=== PATIENT | male | born 1965 | race American Indian/Alaskan Native ===

== ENCOUNTER 2017-07-19 04:21 | Emergency (ER) | payer MEDICAID ==
[2017-07-19 05:39] VITALS: BP 124/84
[2017-07-19 06:29] LABS: Basophils % (Auto) 0.7 % (0.0-1.8); Eosinophils % (Auto) 1.3 % (0.0-4.3); Hemoglobin 15.8 gm/dl (11.8-15.2); Mean Corpuscular HGB Conc 33 % (32-34); Mean Corpuscular Hemoglobin 30 pg (28-32); Mean Corpuscular Volume 91 fl (84-94); Platelet Count 349 K/mm3 (140-440); Red Blood Count 5.29 M/mm3 (3.65-5.03); Red Cell Distribution Width 13.3 % (13.2-15.2); White Blood Count 9.6 K/mm3 (4.5-11.0)
[2017-07-19 06:52] LABS: Alanine Aminotransferase 11 units/L (7-56); Albumin/Globulin Ratio 1.3 %; Alkaline Phosphatase 168 units/L (35-129); Anion Gap 16 mmol/L; BUN/Creatinine Ratio 14; Blood Urea Nitrogen 10 mg/dL (9-20); Calcium 9.3 mg/dL (8.4-10.2); Carbon Dioxide 25 mmol/L (22-30); Chloride 100.2 mmol/L (98-107); Glucose 250 mg/dL (75-100); Lipase 30 units/L (13-60); Potassium 4.5 mmol/L (3.6-5.0); Sodium 137 mmol/L (137-145); Total Protein 7.1 g/dL (6.3-8.2)
[2017-07-19 07:48] LABS: Bilirubin,Urine NEG (Negative); Blood,Urine NEG (Negative); Ketones,Urine NEG (Negative); Leukocyte Esterase,Urine NEG (Negative); Mucus,Urine FEW /HPF; Nitrite,Urine NEG (Negative); Protein,Urine <15 mg/dL mg/dL (Negative); RBC,Urine < 1.0 /HPF (0.0-6.0); Urobilinogen,Urine < 2.0 mg/dL (<2.0)
== END 2017-07-19 10:07 | disposition left against medical advice (07) ==
LOC: ED 04:21
DX: Z53.21 Procedure and treatment not carried out due to patient leaving prior to being seen by health care provider (principal)
CPT/HCPCS: 36415; 80053; 81001; 83690; 85025

== ENCOUNTER 2018-12-22 00:06 | Emergency (ER) | payer MEDICAID ==
[2018-12-22] MEDS ORDERED: ASPIRIN PO ONE (07:26)
--- NOTE | 2018-12-22 07:27 | Emergency Department Report ---
ED Lower Extremity HPI - General Chief Complaint: Extremity Injury, Lower Stated Complaint: RIGHT LEG PAIN Time Seen by Provider: 12/22/18 07:22 Source: patient, EMS Mode of arrival: Wheelchair Limitations: No Limitations - History of Present Illness Initial Comments: Patient is a 53-year-old male who has been in the emergency room for over 7 hours at the time of initial exam. He is complaining of right thigh pain. Patient is diabetic. Injury: Thigh: Right Type of Injury: other (no trauma) - Related Data Previous Rx's Medication Instructions Recorded Last Taken Type Albuterol Sulfate [Ventolin HFA] 2 puff IH Q4H PRN #1 hfa.aer.ad 11/16/15 Unknow n Rx Metformin HCl [Glucophage] 1,000 mg PO BID #60 tablet 11/16/15 09/17/18 Rx Allergies Allergy/AdvReac Type Severity Reaction Status Date / Time No Known Allergies Allergy Verified 09/21/18 07:30 ED Review of Systems ROS: Stated complaint: RIGHT LEG PAIN Other details as noted in HPI Comment: All other systems reviewed and negative Constitutional: denies: no symptoms reported Eyes: denies: eye pain ENT: denies: ear pain Respiratory: denies: no symptoms reported Cardiovascular: denies: palpitations, dyspnea on exertion Endocrine: denies: excessive sweating Gastrointestinal: denies: abdominal pain Genitourinary: denies: urgency Musculoskeletal: as per HPI Skin: denies: as per HPI, lesions Neurological: denies: weakness Psychiatric: denies: anxiety Hematological/Lymphatic: denies: as per HPI ED Past Medical Hx - Past Medical History Previous Medical History?: Yes Hx Hypertension: Yes Hx Diabetes: Yes Hx GERD: Yes Hx Psychiatric Treatment: Yes (schizo) Hx Asthma: Yes Additional medical history: sleep apnea. diverticulitis. CAD, Pain therapy - Surgical History Past Surgical History?: Yes Hx Coronary Stent: Yes Additional Surgical History: left hand surgery - Social History Smoking Status: Current Every Day Smoker Substance Use Type: Marijuana - Medications Home Medications: Home Medications Medication Instructions Recorded Confirmed Last Taken Type Albuterol Sulfate [Ventolin HFA] 2 puff IH Q4H PRN #1 hfa.aer.ad 11/16/15 09/18/18 Unknown Rx Metformin HCl [Glucophage] 1,000 mg PO BID #60 tablet 11/16/15 09/21/1809/17/18 Rx ED Physical Exam - General Limitations: No Limitations General appearance: alert - Head Head exam: Present: atraumatic - Eye Eye exam: Present: normal appearance, PERRL - ENT ENT exam: Present: normal exam - Neck Neck exam: Present: normal inspection - Respiratory Respiratory exam: Present: normal lung sounds bilaterally - Cardiovascular Cardiovascular Exam: Present: regular rate - GI/Abdominal GI/Abdominal exam: Present: soft - Rectal Rectal exam: Present: deferred - Extremities Exam Extremities exam: Present: normal inspection, full ROM - Back Exam Back exam: Present: normal inspection, full ROM - Neurological Exam Neurological exam: Present: alert, oriented X3, CN II-XII intact - Psychiatric Psychiatric exam: Present: normal affect, normal mood - Skin Skin exam: Present: warm, dry, intact ED Course Vital Signs 12/22/18 12/22/18 12/22/18 00:16 00:18 09:31 Temperature 98.1 F 98.1 F 98.4 F Pulse Rate 96 H 94 H 76 Respiratory 18 18 13 Rate Blood Pressure 124/79 Blood Pressure 124/79 135/77 [Left] O2 Sat by Pulse 98 98 98 Oximetry ED Lower Extremity MDM - Radiology Data Radiology results: report reviewed, image reviewed - Medical Decision Making us neg for dvt Labs 12/22/18 00:14 POC Glucose 191 H Vital Signs 12/22/18 12/22/18 12/22/18 00:16 00:18 09:31 Temperature 98.1 F 98.1 F 98.4 F Pulse Rate 96 H 94 H 76 Respiratory 18 18 13 Rate Blood Pressure 124/79 Blood Pressure 124/79 135/77 [Left] O2 Sat by Pulse 98 98 98 Oximetry Critical care attestation.: If time is entered above; I have spent that time in minutes in the direct care of this critically ill patient, excluding procedure time. ED Disposition Clinical Impression: Leg pain Disposition: DC-01 TO HOME OR SELFCARE Is pt being admited?: No Does the pt Need Aspirin: No Condition: Stable Additional Instructions: ULTRASOUND NEG FOR BLOOD CLOT FOLLOW UP WITH YOUR PCP THIS WEEK MOTRIN OR TYLENOL FOR PAIN DIET DIABETIC ACTIVITY TOLERATED Referrals: CÉSAR SHANNON MD [Primary Care Provider] - 3-5 Days Time of Disposition: 09:22
--- NOTE | 2018-12-22 08:56 | Vascular Lab Report ---
PROCEDURE: VL VENOUS DUPLEX LE RT TECHNIQUE: Grayscale, color and spectral Doppler ultrasound evaluation of the right lower extremity for DVT HISTORY: LEG PAIN IN DIABETIC COMPARISONS: None FINDINGS: The deep veins in the right lower extremity demonstrate normal compression, color Doppler appearance and spectral Doppler waveforms. Normal respiratory variation and response to augmentation (where perf ormed.) IMPRESSION: No sonographic evidence of DVT in the imaged portions of the right lower extremity. This document is electronically signed by Iam Cowan MD., December 22 2018 08:53:27 AM ET
[2018-12-22 09:33] VITALS: BP 135/77
== END 2018-12-22 09:31 | disposition home or self-care (01) ==
LOC: ED 00:06
DX: M79.651 Pain in right thigh (principal); I10 Essential (primary) hypertension; E11.9 Type 2 diabetes mellitus without complications; K21.9 Gastro-esophageal reflux disease without esophagitis; F31.9 Bipolar disorder, unspecified; J45.909 Unspecified asthma, uncomplicated; F17.200 Nicotine dependence, unspecified, uncomplicated; F12.10 Cannabis abuse, uncomplicated
CPT/HCPCS: 82962

== ENCOUNTER 2019-04-19 04:00 | Emergency (ER) | payer MEDICAID ==
[2019-04-19] MEDS ORDERED: ASPIRIN PO ONE (04:07)
[2019-04-19 04:55] LABS: Basophils # (Auto) 0.1 K/mm3 (0.0-0.1); Basophils % (Auto) 0.8 % (0.0-1.8); Eosinophils # (Auto) 0.1 K/mm3 (0.0-0.4); Eosinophils % (Auto) 1.1 % (0.0-4.3); Hematocrit 50.2 % (35.5-45.6); Hemoglobin 16.6 gm/dl (11.8-15.2); Lymphocytes # (Auto) 2.6 K/mm3 (1.2-5.4); Lymphocytes % (Auto) 31.5 % (13.4-35.0); Mean Corpuscular HGB Conc 33 % (32-34); Mean Corpuscular Volume 94 fl (84-94); Monocytes # (Auto) 0.6 K/mm3 (0.0-0.8); Monocytes % (Auto) 6.9 % (0.0-7.3); Platelet Count 239 K/mm3 (140-440); Red Blood Count 5.37 M/mm3 (3.65-5.03); Red Cell Distribution Width 14.6 % (13.2-15.2)
[2019-04-19 05:10] LABS: BUN/Creatinine Ratio 18; Blood Urea Nitrogen 18 mg/dL (9-20); Hemolysis Index 51
--- NOTE | 2019-04-19 05:21 | XRay Report ---
CHEST 1 VIEW INDICATION / CLINICAL INFORMATION: Chest Pain. COMPARISON: None available. FINDINGS: SUPPORT DEVICES: None. HEART / MEDIASTINUM: No significant abnormality. LUNGS / PLEURA: No significant pulmonary or pleural abnormality. No pneumothorax. ADDITIONAL FINDINGS: No significant additional findings. IMPRESSION: 1. No acute findings. Signer Name: Jaylon Hubbard MD Signed: 04/19/2019 5:17 AM Workstation Name: [id number]
--- NOTE | 2019-04-19 06:16 | Emergency Department Report ---
ED General Adult HPI - General Chief complaint: Dyspnea/Respdistress Stated complaint: COPD Time Seen by Provider: 04/19/19 06:13 Source: patient, EMS Mode of arrival: Wheelchair Limitations: No Limitations - History of Present Illness Initial comments: 3-year-old male with a history of COPD. He states he's been coughing and short of breath for a few days. He states he is out of his medication to include metformin but he did take his insulin. He states his doctor is out of town. He reports occasionally productive sputum. He said no fever or chills. He denies chest pain. -: Gradual, days(s) Associated Symptoms: denies other symptoms, cough, shortness of breath. denies: confusion, chest pain, diaphoresis, fever/chills, headaches, loss of appetite, malaise, nausea/vomiting, rash, seizure, syncope, weakness - Related Data Previous Rx's Medication Instructions Recorded Last Taken Type Albuterol Sulfate [Ventolin HFA] 2 puff IH Q4H PRN #1 hfa.aer.ad 11/16/15 Unknown Rx Metformin HCl [Glucophage] 1,000 mg PO BID #60 tablet 11/16/15 09/17/18 Rx Albuterol Sulfate [Albuterol 0.63% 0.63 mg IH TID PRN #90 vial 04/19/19 Unknown Rx NEBS] Albuterol Sulfate [Proventil Hfa] 6.7 gm IH Q4H PRN #1 hfa.aer.ad 04/19/19 Unknown Rx Azithromycin [Zithromax Z-ROSETTA] 250 mg PO DAILY #6 tablet 04/19/19 Unknown Rx Allergies Allergy/AdvReac Type Severity Reaction Status Date / Time No Known Allergies Allergy Verified 09/21/18 07:30 ED Review of Systems ROS: Stated complaint: COPD Other details as noted in HPI Constitutional: denies: chills, fever Eyes: denies: eye pain, eye discharge, vision change ENT: denies: ear pain, throat pain Respiratory: no symptoms reported, cough, shortness of breath, wheezing Cardiovascular: denies: chest pain, palpitations Endocrine: no symptoms reported Gastrointestinal: denies: abdominal pain, nausea, diarrhea Genitourinary: denies: urgency, dysuria Musculoskeletal: denies: back pain, joint swelling, arthralgia Skin: denies: rash, lesions Neurological: denies: headache, weakness, paresthesias Psychiatric: denies: anxiety, depression Hematological/Lymphatic: denies: easy bleeding, easy bruising ED Past Medical Hx - Past Medical History Previous Medical History?: Yes Hx Hypertension: Yes Hx Diabetes: Yes Hx GERD: Yes Hx Psychiatric Treatment: Yes (schizo) Hx Asthma: Yes Additional medical history: sleep apnea. diverticulitis. CAD, Pain therapy - Surgical History Past Surgical History?: Yes Hx Coronary Stent: Yes Additional Surgical History: left hand surgery - Social History Smoking Status: Current Some Day Smoker Substance Use Type: None - Medications Home Medications: Home Medications Medication Instructions Recorded Confirmed Last Taken Type Albuterol Sulfate [Ventolin HFA] 2 puff IH Q4H PRN #1 hfa.aer.ad 11/16/15 09/18/18 Unknown Rx Metformin HCl [Glucophage] 1,000 mg PO BID #60 tablet 11/16/15 09/21/18 09/17/18 Rx Albuterol Sulfate [Albuterol 0.63% 0.63 mg IH TID PRN #90 vial 04/19/19 Unknown Rx NEBS] Albuterol Sulfate [Proventil Hfa] 6.7 gm IH Q4H PRN #1 hfa.aer.ad 04/19/19 Unknown Rx Azithromycin [Zithromax Z-ROSETTA] 250 mg PO DAILY #6 tablet 04/19/19 Unknown Rx ED Physical Exam - General Limitations: No Limitations General appearance: alert, in no apparent distress - Head Head exam: Present: atraumatic, normocephalic - Eye Eye exam: Present: normal appearance. Absent: scleral icterus - ENT ENT exam: Present: mucous membranes moist - Neck Neck exam: Present: normal inspection - Respiratory Respiratory exam: Present: decreased breath sounds (somewhat), prolonged expiratory (mildly). Absent: respiratory distress - Cardiovascular Cardiovascular Exam: Present: regular rate, normal rhythm. Absent: systolic murmur, diastolic murmur, rubs, gallop - GI/Abdominal GI/Abdominal exam: Present: soft, normal bowel sounds. Absent: distended, tenderness, guarding, rebound, rigid - Rectal Rectal exam: Present: deferred - Extremities Exam Extremities exam: Present: normal inspection - Back Exam Back exam: Present: normal inspection - Neurological Exam Neurological exam: Present: alert, oriented X3, CN II-XII intact. Absent: motor sensory deficit - Psychiatric Psychiatric exam: Present: normal affect, normal mood - Skin Skin exam: Present: warm, dry, intact, normal color. Absent: rash ED Course Vital Signs 04/19/19 04/19/19 06:18 06:33 Temperature 98.1 F Pulse Rate 88 Pulse Rate [ 75 Bilateral] Respiratory 18 Rate Respiratory 18 Rate [Bilateral ] Blood Pressure 105/76 [Right] O2 Sat by Pulse 100 Oximetry - Reevaluation(s) Reevaluation #1: Patient received a neb with improvement. He is appropriate for outpatient management. 04/19/19 08:13 Reevaluation #2: Respiratory status improved. Patient appropriate for outpatient management. 04/19/19 08:24 ED Medical Decision Making - Lab Data Result diagrams: 04/19/19 04:15 04/19/19 04:19 Laboratory Results - last 24 hr 04/19/19 04/19/19 04/19/19 04:15 04:16 04:19 WBC 8.2 RBC 5.37 H Hgb 16.6 H Hct 50.2 H MCV 94 MCH 31 MCHC 33 RDW 14.6 Plt Count 239 Lymph % (Auto) 31.5 Scurry % (Auto) 6.9 Eos % (Auto) 1.1 Baso % (Auto) 0.8 Lymph # 2.6 Scurry # 0.6 Eos # 0.1 Baso # 0.1 Seg Neutrophils % 59.7 Seg Neutrophils # 4.9 Sodium 137 Potassium 4.6 Chloride 100.6 Carbon Dioxide 24 Anion Gap 17 BUN 18 Creatinine 1.0 Estimated GFR > 60 BUN/Creatinine Ratio 18 Glucose 371 H POC Glucose 308 H Calcium 9.0 Troponin T 0.014 Critical care attestation.: If time is entered above; I have spent that time in minutes in the direct care of this critically ill patient, excluding procedure time. ED Disposition Clinical Impression: COPD exacerbation, Hyperglycemia due to type 1 diabetes mellitus Acute bronchitis Qualifiers: Bronchitis organism: unspecified organism Qualified Code(s): J20.9 - Acute bronchitis, unspecified Disposition: DC-01 TO HOME OR SELFCARE Is pt being admited?: No Does the pt Need Aspirin: No Condition: Stable Instructions: Diabetes Mellitus Type 2 in Adults (ED), Chronic Obstructive Pulmonary Disease (ED), Acute Bronchitis (ED) Additional Instructions: Follow-up with your primary care provider. If they're not available [facility]. Return any acute change or problem. Prescriptions: Albuterol Sulfate [Albuterol 0.63% NEBS] 0.63 mg IH TID PRN #90 vial PRN Reason: Wheezing Albuterol Sulfate [Proventil Hfa] 6.7 gm IH Q4H PRN #1 hfa.aer.ad PRN Reason: Wheezing Azithromycin [Zithromax Z-ROSETTA] 250 mg PO DAILY #6 tablet Referrals: [facility] [Provider Group] - 3-5 Days PRIMARY [facility]ARE, [Primary Care Provider] - 3-5 Days Time of Disposition: 08:42
[2019-04-19] MEDS ORDERED: DUONEB *Not for PRN Use IH ONE (06:21)
[2019-04-19] MEDS ORDERED: HumuLIN R SUB-Q ONE (06:22)
[2019-04-19 08:57] VITALS: BP 106/79
== END 2019-04-19 08:57 | disposition home or self-care (01) ==
LOC: ED 04:00
DX: J44.1 Chronic obstructive pulmonary disease with (acute) exacerbation (principal); E10.65 Type 1 diabetes mellitus with hyperglycemia; J20.9 Acute bronchitis, unspecified; I10 Essential (primary) hypertension; K21.9 Gastro-esophageal reflux disease without esophagitis; F20.9 Schizophrenia, unspecified; G47.30 Sleep apnea, unspecified; F17.200 Nicotine dependence, unspecified, uncomplicated; Z79.4 Long term (current) use of insulin; Z79.84 Long term (current) use of oral hypoglycemic drugs; Z79.899 Other long term (current) drug therapy; Z95.1 Presence of aortocoronary bypass graft; Z98.890 Other specified postprocedural states
CPT/HCPCS: 36415; 71045; 80048; 82962; 84484; 85025; 93005; 93010; 94640; 96372; J1815

== ENCOUNTER 2019-05-01 02:57 | Emergency (ER) | payer MEDICAID ==
[2019-05-01 04:03] LABS: Basophils # (Auto) 0.1 K/mm3 (0.0-0.1); Basophils % (Auto) 0.6 % (0.0-1.8); Eosinophils # (Auto) 0.1 K/mm3 (0.0-0.4); Eosinophils % (Auto) 0.9 % (0.0-4.3); Hematocrit 48.9 % (35.5-45.6); Hemoglobin 16.3 gm/dl (11.8-15.2); Lymphocytes # (Auto) 3.3 K/mm3 (1.2-5.4); Lymphocytes % (Auto) 37.1 % (13.4-35.0); Mean Corpuscular HGB Conc 33 % (32-34); Mean Corpuscular Volume 93 fl (84-94); Monocytes # (Auto) 0.5 K/mm3 (0.0-0.8); Platelet Count 229 K/mm3 (140-440); Red Blood Count 5.29 M/mm3 (3.65-5.03); Red Cell Distribution Width 14.6 % (13.2-15.2)
[2019-05-01 04:29] LABS: BUN/Creatinine Ratio 12; Blood Urea Nitrogen 13 mg/dL (9-20); Calcium 8.9 mg/dL (8.4-10.2); Hemolysis Index 26
[2019-05-01 04:58] LABS: Bacteria,Urine 1+ /HPF (Negative); Bilirubin,Urine NEG (Negative); Blood,Urine NEG (Negative); Color,Urine Yellow (Yellow); Mucus,Urine FEW /HPF; Protein,Urine <15 mg/dL mg/dL (Negative); Urobilinogen,Urine < 2.0 mg/dL (<2.0)
[2019-05-01] MEDS ORDERED: NACL 0.9% 1000 ML 2,000 ML IV ONE (05:16)
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
--- NOTE | 2019-05-01 08:18 | XRay Report ---
CHEST 2 VIEWS INDICATION: cough. COMPARISON: 04/19/2019 FINDINGS: Support devices: None. Heart: Within normal limits. Lungs: No acute air space or interstitial disease. Pleura: Diffuse increased bronchovascular markings. Subpleural thickening is present. No pneumothorax . Additional findings: None. IMPRESSION: 1. Diffuse pulmonary process which has increased as compared to previous exam, pulmonary edema is a c oncern Signer Name: Kaleb Hernandez MD Signed: 05/01/2019 8:14 AM Workstation Name: [id number]
[2019-05-01 10:32] VITALS: BP 112/83
== END 2019-05-01 10:00 | disposition home or self-care (01) ==
LOC: ED 02:57
DX: J44.1 Chronic obstructive pulmonary disease with (acute) exacerbation (principal); E11.65 Type 2 diabetes mellitus with hyperglycemia; I10 Essential (primary) hypertension; K21.0 Gastro-esophageal reflux disease with esophagitis; F20.9 Schizophrenia, unspecified; I25.10 Atherosclerotic heart disease of native coronary artery without angina pectoris; F17.200 Nicotine dependence, unspecified, uncomplicated; Z95.1 Presence of aortocoronary bypass graft; Z98.890 Other specified postprocedural states; Z79.899 Other long term (current) drug therapy
CPT/HCPCS: 36415; 71046; 80048; 81001; 82805; 82962; 85025; 87086; 96360; 99284; J7030

== ENCOUNTER 2019-05-26 06:15 | Emergency (ER) | payer MEDICAID ==
[2019-05-26] MEDS ORDERED: TORADOL IV ONE (07:50)
[2019-05-26] MEDS ORDERED: NACL 0.9% 1000 ML 1,000 ML IV ONE (07:50)
--- NOTE | 2019-05-26 07:52 | Emergency Department Report ---
ED Headache HPI - General Chief Complaint: Headache Stated Complaint: LEG AND HEAD PAIN Time Seen by Provider: 05/26/19 07:24 - History of Present Illness Initial Comments: This is a 53-year-old male with a history of diabetes presents to ED complaining of one episode of dizziness earlier this morning and then headache started s hortly after that. Patient states that he is currently taking his metformin twice a day and is not taking insulin to the fact that he is out of his insulin. Patient has a primary care physician Dr. Kyle Ochoa. Patient states that dizziness is resolved but he still having a throbbing headache pain. Patient denies any trauma or injuries to the head. Allergies/Adverse Reactions: Allergies No Known Allergies Allergy (Verified 09/21/18 07:30) Home Medications: Ambulatory Orders Albuterol Sulfate [Ventolin HFA] 2 puff IH Q4H PRN #1 hfa.aer.ad 11/16/15 Metformin HCl [Glucophage] 1,000 mg PO BID #60 tablet 11/16/15 Azithromycin [Zithromax Z-ROSETTA] 250 mg PO DAILY #6 tablet 04/19/19 Albuterol Sulfate [Albuterol 0.63% NEBS] 0.63 mg IH TID PRN #90 vial 05/01/19 Albuterol Sulfate [Proventil Hfa] 6.7 gm IH Q4H PRN #1 hfa.aer.ad 05/01/19 Benzonatate [Tessalon Perles] 100 mg PO Q8HR #30 capsule 05/01/19 Ibuprofen [Motrin] 600 mg PO Q8H PRN #25 tablet 05/26/19 ED Review of Systems ROS: Stated complaint: LEG AND HEAD PAIN Other details as noted in HPI Comment: All other systems reviewed and negative ED Past Medical Hx - Past Medical History Previous Medical History?: Yes Hx Hypertension: Yes Hx Diabetes: Yes Hx GERD: Yes Hx Psychiatric Treatment: Yes (schizophrenia) Hx Asthma: Yes Additional medical history: sleep apnea. diverticulitis. CAD, Pain therapy - Surgical History Past Surgical History?: Yes Hx Coronary Stent: Yes Additional Surgical History: left hand surgery - Social History Smoking Status: Current Every Day Smoker - Medications Home Medications: Home Medications Medication Instructions Recorded Confirmed Last Taken Type Albuterol Sulfate [Ventolin HFA] 2 puff IH Q4H PRN #1 hfa.aer.ad 11/16/15 09/18/18 Unknown Rx Metformin HCl [Glucophage] 1,000 mg PO BID #60 tablet 11/16/15 09/21/18 09/17/18 Rx Azithromycin [Zithromax Z-ROSETTA] 250 mg PO DAILY #6 tablet 04/19/19 Unknown Rx Albuterol Sulfate [Albuterol 0.63% 0.63 mg IH TID PRN #90 vial 05/01/19 Unknown Rx NEBS] Albuterol Sulfate [Proventil Hfa] 6.7 gm IH Q4H PRN #1 hfa.aer.ad 05/01/19 Unknown Rx Benzonatate [Tessalon Perles] 100 mg PO Q8HR #30 capsule 05/01/19 Unknown Rx Ibuprofen [Motrin] 600 mg PO Q8H PRN #25 tablet 05/26/19 Unknown Rx ED Physical Exam - General Limitations: No Limitations General appearance: alert, in no apparent distress - Head Head exam: Present: atraumatic, normocephalic - Eye Eye exam: Present: normal appearance - ENT ENT exam: Present: mucous membranes moist - Neck Neck exam: Present: normal inspection - Respiratory Respiratory exam: Present: normal lung sounds bilaterally. Absent: respiratory distress - Cardiovascular Cardiovascular Exam: Present: regular rate, normal rhythm. Absent: systolic murmur, diastolic murmur, rubs, gallop - GI/Abdominal GI/Abdominal exam: Present: soft, normal bowel sounds - Rectal Rectal exam: Present: deferred - Extremities Exam Extremities exam: Present: normal inspection - Back Exam Back exam: Present: normal inspection - Neurological Exam Neurological exam: Present: alert, oriented X3 - Psychiatric Psychiatric exam: Present: normal affect, normal mood - Skin Skin exam: Present: warm, dry, intact, normal color. Absent: rash ED Course Vital Signs 05/26/19 06:18 Temperature 97.9 F Pulse Rate 87 Respiratory 16 Rate Blood Pressure 119/86 [Right] O2 Sat by Pulse 100 Oximetry - Reevaluation(s) Reevaluation #1: 05/26/19 09:51 Patient is sitting up in he is chair he looks better he is doing much better he states that he is feeling much better and his headache and dizziness has resolved. Patient vital signs stable. He is in no acute distress ED Medical Decision Making - Lab Data Result diagrams: 05/26/19 08:01 05/26/19 08:01 Laboratory Last Values WBC 7.0 K/mm3 (4.5-11.0) 05/26/19 08:01 RBC 5.07 M/mm3 (3.65-5.03) H 05/26/19 08:01 Hgb 15.9 gm/dl (11.8-15.2) H 05/26/19 08:01 Hct 46.8 % (35.5-45.6) H 05/26/19 08:01 MCV 92 fl (84-94) 05/26/19 08:01 MCH 31 pg (28-32) 05/26/19 08:01 MCHC 34 % (32-34) 05/26/19 08:01 RDW 14.9 % (13.2-15.2) 05/26/19 08:01 Plt Count 186 K/mm3 (140-440) 05/26/19 08:01 Lymph % (Auto) 34.5 % (13.4-35.0) 05/26/19 08:01 [place] % (Auto) 8.0 % (0.0-7.3) H 05/26/19 08:01 Eos % (Auto) 0.9 % (0.0-4.3) 05/26/19 08:01 Baso % (Auto) 0.9 % (0.0-1.8) 05/26/19 08:01 Lymph # 2.4 K/mm3 (1.2-5.4) 05/26/19 08:01 [place] # 0.6 K/mm3 (0.0-0.8) 05/26/19 08:01 Eos # 0.1 K/mm3 (0.0-0.4) 05/26/19 08:01 Baso # 0.1 K/mm3 (0.0-0.1) 05/26/19 08:01 Seg Neutrophils % 55.7 % (40.0-70.0) 05/26/19 08:01 Seg Neutrophils # 3.9 K/mm3 (1.8-7.7) 05/26/19 08:01 Sodium 134 mmol/L (137-145) L 05/26/19 08:01 Potassium 4.1 mmol/L (3.6-5.0) 05/26/19 08:01 Chloride 101.0 mmol/L (98-107) 05/26/19 08:01 Carbon Dioxide 23 mmol/L (22-30) 05/26/19 08:01 14 mmol/L 05/26/19 08:01 BUN 14 mg/dL (9-20) 05/26/19 08:01 0.8 mg/dL (0.8-1.5) 05/26/19 08:01 Estimated GFR > 60 ml/min 05/26/19 08:01 18 % 05/26/19 08:01 Glucose 308 mg/dL (75-100) H 05/26/19 08:01 Calcium 8.5 mg/dL (8.4-10.2) 05/26/19 08:01 1.50 mg/dL (0.1-1.2) H 05/26/19 08:01 AST 24 units/L (5-40) 05/26/19 08:01 ALT 29 units/L (7-56) 05/26/19 08:01 85 units/L (35-129) 05/26/19 08:01 5.1 g/dL (6.3-8.2) L 05/26/19 08:01 2.9 g/dL (3.9-5) L 05/26/19 08:01 1.3 % 05/26/19 08:01 Yellow (Yellow) 05/26/19 08:25 Slightly-cloudy (Clear) 05/26/19 08:25 5.0 (5.0-7.0) 05/26/19 08:25 Ur Specific [place] 1.025 (1.003-1.030) 05/26/19 08:25 <15 mg/dl mg/dL (Negative) 05/26/19 08:25 >=500 mg/dL (Negative) 05/26/19 08:25 Tr mg/dL (Negative) 05/26/19 08:25 Neg (Negative) 05/26/19 08:25 Neg (Negative) 05/26/19 08:25 Neg (Negative) 05/26/19 08:25 2.0 mg/dL (<2.0) 05/26/19 08:25 Ur Leukocyte Esterase Tr (Negative) 05/26/19 08:25 17.0 /HPF (0.0-6.0) H 05/26/19 08:25 6.0 /HPF (0.0-6.0) 05/26/19 08:25 U Epithel Cells (Auto) 8.0 /HPF (0-13.0) 05/26/19 08:25 1+ /HPF (Negative) 05/26/19 08:25 Calcium Oxalate Crystal 2+ 05/26/19 08:25 Few /HPF 05/26/19 08:25 - EKG Data EKG shows normal: sinus rhythm - EKG Data When compared to previous EKG there are: no significant change - Medical Decision Making 53-year-old male presenting to the onset of acute headache. This is most likely due to mildly elevated blood glucose. CBC, CMP and urinalysis obtained. This CBC within normal limits, mildly elevated glucose at 305 and urinalysis positive for leukocyte esterase approximately this may be indicated a kidney stone. Patient does state that he had a history of kidney stone Patient received 50 mg of Toradol and IV fluids in the ED. patient associated with Rocephin in the ED Discussed the patient about keeping his diabetes under control. Patient states he'll be following up with primary care physician who is currently helping him to get his insulin. Discussed the patient to follow up with his primary care physician to get this prescription form and insulin. Discussed continue taking metformin patient looks much better he's walking and talking and laughing and is ready for discharge. Critical care attestation.: If time is entered above; I have spent that time in minutes in the direct care of this critically ill patient, excluding procedure time. ED Disposition Clinical Impression: Acute headache, UTI (urinary tract infection) Disposition: - TO HOME OR SELFCARE Is pt being admited?: No Does the pt Need Aspirin: No Condition: Stable Instructions: Urinary Tract Infection in Men (ED), Acute Headache (ED) Additional Instructions: Make sure to follow up with the primary care physician as discussed. Nature UR to continue her diabetes medication both insulin and metformin. If you have any worsening symptoms or develop new symptoms please return to ED immediately. Prescriptions: Ibuprofen [Motrin] 600 mg PO Q8H PRN #25 tablet PRN Reason: Pain Referrals: LAURA WEBSTER MD [Primary Care Provider] - 3-5 Days Forms: Work/School Release Form(ED) Time of Disposition: 09:58
[2019-05-26 08:13] LABS: Basophils # (Auto) 0.1 K/mm3 (0.0-0.1); Basophils % (Auto) 0.9 % (0.0-1.8); Eosinophils # (Auto) 0.1 K/mm3 (0.0-0.4); Eosinophils % (Auto) 0.9 % (0.0-4.3); Hematocrit 46.8 % (35.5-45.6); Hemoglobin 15.9 gm/dl (11.8-15.2); Lymphocytes # (Auto) 2.4 K/mm3 (1.2-5.4); Lymphocytes % (Auto) 34.5 % (13.4-35.0); Mean Corpuscular HGB Conc 34 % (32-34); Mean Corpuscular Volume 92 fl (84-94); Monocytes # (Auto) 0.6 K/mm3 (0.0-0.8); Platelet Count 186 K/mm3 (140-440); Red Blood Count 5.07 M/mm3 (3.65-5.03); Red Cell Distribution Width 14.9 % (13.2-15.2)
[2019-05-26 08:37] LABS: Alanine Aminotransferase 29 units/L (7-56); Albumin 2.9 g/dL (3.9-5); BUN/Creatinine Ratio 18; Blood Urea Nitrogen 14 mg/dL (9-20); Calcium 8.5 mg/dL (8.4-10.2); Hemolysis Index 8
[2019-05-26 08:46] LABS: Bacteria,Urine 1+ /HPF (Negative); Bilirubin,Urine NEG (Negative); Blood,Urine NEG (Negative); Calcium Oxalate Crystals,Urine 2+; Color,Urine Yellow (Yellow); Mucus,Urine FEW /HPF; Protein,Urine <15 mg/dL mg/dL (Negative)
[2019-05-26] MEDS ORDERED: XYLOCAINE 1% MPF 5 mL INFILTRATI ONE (09:56)
[2019-05-26] MEDS ORDERED: ROCEPHIN IM ONE (09:56)
[2019-05-26 10:25] VITALS: BP 104/77
== END 2019-05-26 10:21 | disposition home or self-care (01) ==
LOC: ED 06:15
DX: N39.0 Urinary tract infection, site not specified (principal); R51 Headache; E11.9 Type 2 diabetes mellitus without complications; I10 Essential (primary) hypertension; K21.9 Gastro-esophageal reflux disease without esophagitis; F20.9 Schizophrenia, unspecified; J45.909 Unspecified asthma, uncomplicated; G47.30 Sleep apnea, unspecified; F17.200 Nicotine dependence, unspecified, uncomplicated; Z95.1 Presence of aortocoronary bypass graft; Z79.84 Long term (current) use of oral hypoglycemic drugs; Z79.899 Other long term (current) drug therapy; Z79.1 Long term (current) use of non-steroidal anti-inflammatories (NSAID)
CPT/HCPCS: 36415; 80053; 81001; 85025; 87086; 93005; 93010; 96361; 96372; 96374; 99284; J0696; J1885; J7030

== ENCOUNTER 2019-05-28 03:20 | Inpatient (IN) | payer MEDICAID ==
[2019-05-28 04:03] LABS: Basophils # (Auto) 0.1 K/mm3 (0.0-0.1); Basophils % (Auto) 0.6 % (0.0-1.8); Eosinophils % (Auto) 0.3 % (0.0-4.3); Hematocrit 48.9 % (35.5-45.6); Hemoglobin 16.7 gm/dl (11.8-15.2); Lymphocytes # (Auto) 2.9 K/mm3 (1.2-5.4); Lymphocytes % (Auto) 29.8 % (13.4-35.0); Mean Corpuscular HGB Conc 34 % (32-34); Mean Corpuscular Volume 92 fl (84-94); Monocytes # (Auto) 0.7 K/mm3 (0.0-0.8); Monocytes % (Auto) 7.5 % (0.0-7.3); Platelet Count 218 K/mm3 (140-440); Red Blood Count 5.32 M/mm3 (3.65-5.03); Red Cell Distribution Width 15.1 % (13.2-15.2)
[2019-05-28 04:23] LABS: Alanine Aminotransferase 32 units/L (7-56); Albumin 3.5 g/dL (3.9-5); BUN/Creatinine Ratio 12; Blood Urea Nitrogen 11 mg/dL (9-20); Hemolysis Index 12
[2019-05-28] MEDS ORDERED: HumuLIN R IV ONE (06:25)
[2019-05-28] MEDS ORDERED: LASIX IV ONE (06:25)
--- NOTE | 2019-05-28 06:25 | Emergency Department Report ---
ED General Adult HPI - General Chief complaint: Extremity Problem,Nontraumatic Stated complaint: PAIN/SWELLING BOTH LEGS Time Seen by Provider: 05/28/19 06:06 Source: patient Mode of arrival: Ambulatory Limitations: No Limitations - History of Present Illness Initial comments: 53-year-old male who is a very poorly controlled diabetic probably noncompliant who I have seen before in the past. He has history of COPD. He states that he has had swollen legs for 2 weeks. He states that he was here before and told that the cause was a urinary tract infection. However, review of his prior visit on 05/26/2019 indicates that he was here for an acute headache. I do not believe he has any history of congestive heart failure. He does have a history of COPD. He states that he is seeing Dr. Reyes and does not yet have a CPAP machine like he did when he was living in [place] some time ago. He is not reporting to me any acute shortness of breath. He does have exertional dyspnea. He also states he "does not sleep at night" due to shortness of breath. -: Gradual, week(s) Improves with: none Worsens with: none Associated Symptoms: denies other symptoms - Related Data Previous Rx's Medication Instructions Recorded Last Taken Type Albuterol Sulfate [Ventolin HFA] 2 puff IH Q4H PRN #1 hfa.aer.ad 11/16/15 Unknown Rx Metformin HCl [Glucophage] 1,000 mg PO BID #60 tablet 11/16/15 09/17/18 Rx Azithromycin [Zithromax Z-ROSETTA] 250 mg PO DAILY #6 tablet 04/19/19 Unknown Rx Albuterol Sulfate [Albuterol 0.63% 0.63 mg IH TID PRN #90 vial 05/01/19 Unknown Rx NEBS] Albuterol Sulfate [Proventil Hfa] 6.7 gm IH Q4H PRN #1 hfa.aer.ad 05/01/19 Unknown Rx Benzonatate [Tessalon Perles] 100 mg PO Q8HR #30 capsule 05/01/19 Unknown Rx Ibuprofen [Motrin] 600 mg PO Q8H PRN #25 tablet 05/26/19 Unknown Rx Allergies Allergy/AdvReac Type Severity Reaction Status Date / Time No Known Allergies Allergy Verified 09/21/18 07:30 ED Review of Systems ROS: Stated complaint: PAIN/SWELLING BOTH LEGS Other details as noted in HPI Constitutional: denies: chills, fever Eyes: denies: eye pain, eye discharge, vision change ENT: denies: ear pain, throat pain Respiratory: denies: cough, shortness of breath, wheezing Cardiovascular: edema. denies: chest pain, palpitations Endocrine: no symptoms reported Gastrointestinal: denies: abdominal pain, nausea, diarrhea Genitourinary: denies: urgency, dysuria Musculoskeletal: as per HPI. denies: back pain, joint swelling, arthralgia Skin: as per HPI (some blisters on his legs). denies: rash, lesions Neurological: denies: headache, weakness, paresthesias Psychiatric: denies: anxiety, depression Hematological/Lymphatic: denies: easy bleeding, easy bruising ED Past Medical Hx - Past Medical History Hx Hypertension: Yes Hx Diabetes: Yes Hx GERD: Yes Hx Psychiatric Treatment: Yes (schizophrenia) Hx Asthma: Yes Additional medical history: sleep apnea. diverticulitis. CAD, Pain therapy - Surgical History Past Surgical History?: Yes Hx Coronary Stent: Yes Additional Surgical History: left hand surgery - Social History Smoking Status: Current Every Day Smoker Substance Use Type: None - Medications Home Medications: Home Medications Medication Instructions Recorded Confirmed Last Taken Type Albuterol Sulfate [Ventolin HFA] 2 puff IH Q4H PRN #1 hfa.aer.ad 11/16/15 09/18/18 Unknown Rx Metformin HCl [Glucophage] 1,000 mg PO BID #60 tablet 11/16/15 09/21/18 09/17/18 Rx Azithromycin [Zithromax Z-ROSETTA] 250 mg PO DAILY #6 tablet 04/19/19 Unknown Rx Albuterol Sulfate [Albuterol 0.63% 0.63 mg IH TID PRN #90 vial 05/01/19 Unknown Rx NEBS] Albuterol Sulfate [Proventil Hfa] 6.7 gm IH Q4H PRN #1 hfa.aer.ad 05/01/19 Unknown Rx Benzonatate [Tessalon Perles] 100 mg PO Q8HR #30 capsule 05/01/19 Unknown Rx Ibuprofen [Motrin] 600 mg PO Q8H PRN #25 tablet 05/26/19 Unknown Rx ED Physical Exam - General Limitations: No Limitations General appearance: alert, in no apparent distress, cachectic - Head Head exam: Present: atraumatic, normocephalic - Eye Eye exam: Present: normal appearance. Absent: scleral icterus - ENT ENT exam: Present: mucous membranes moist - Neck Neck exam: Present: normal inspection - Respiratory Respiratory exam: Present: normal lung sounds bilaterally. Absent: respiratory distress - Cardiovascular Cardiovascular Exam: Present: regular rate, normal rhythm. Absent: systolic murmur, diastolic murmur, rubs, gallop - GI/Abdominal GI/Abdominal exam: Present: soft, normal bowel sounds. Absent: distended, tenderness, guarding, rebound, rigid - Rectal Rectal exam: Present: deferred - Extremities Exam Extremities exam: Present: other (bilateral 2+ pitting pretibial, ankle and pedal no calf tenderness) - Back Exam Back exam: Present: normal inspection - Neurological Exam Neurological exam: Present: alert, oriented X3, CN II-XII intact. Absent: motor sensory deficit - Psychiatric Psychiatric exam: Present: normal mood, flat affect - Skin Skin exam: Present: warm, dry, intact, normal color. Absent: rash ED Course Vital Signs 05/28/19 05/28/19 03:21 05:03 Temperature 98.3 F Pulse Rate 101 H Respiratory 18 18 Rate Blood Pressure 101/80 Blood Pressure 124/85 [Right] O2 Sat by Pulse 99 Oximetry - Reevaluation(s) Reevaluation #1: I'm going to give the patient insulin Lasix and potassium. I think he qualifies for admission for new onset CHF. 05/28/19 07:14 Reevaluation #2: Stress with hospitalist. The patient will be admitted for further care and evaluation. 05/28/19 07:53 ED Medical Decision Making - Lab Data Result diagrams: 05/28/19 03:37 05/28/19 03:37 Laboratory Results - last 24 hr 05/28/19 05/28/19 03:37 03:37 WBC 9.6 RBC 5.32 H Hgb 16.7 H Hct 48.9 H MCV 92 MCH 31 MCHC 34 RDW 15.1 Plt Count 218 Lymph % (Auto) 29.8 [place] % (Auto) 7.5 H Eos % (Auto) 0.3 Baso % (Auto) 0.6 Lymph # 2.9 [place] # 0.7 Eos # 0.0 Baso # 0.1 Seg Neutrophils % 61.8 Seg Neutrophils # 5.9 Sodium 134 L Potassium 3.8 Chloride 98.1 Carbon Dioxide 26 Anion Gap 14 BUN 11 Creatinine 0.9 Estimated GFR > 60 BUN/Creatinine Ratio 12 Glucose 323 H Calcium 9.0 Total Bilirubin 1.60 H AST 24 ALT 32 Alkaline Phosphatase 95 NT-Pro-B Natriuret Pep 3794 H Total Protein 5.9 L Albumin 3.5 L Albumin/Globulin Ratio 1.5 Critical care attestation.: If time is entered above; I have spent that time in minutes in the direct care of this critically ill patient, excluding procedure time. ED Disposition Clinical Impression: New onset of congestive heart failure Uncontrolled diabetes mellitus with hyperglycemia Qualifiers: Diabetes mellitus type: type 2 Qualified Code(s): E11.65 - Type 2 diabetes mellitus with hyperglycemia COPD (chronic obstructive pulmonary disease) Qualifiers: COPD type: unspecified COPD Qualified Code(s): J44.9 - Chronic obstructive pulmonary disease, unspecified Disposition: 09 OP ADMIT IP TO THIS HOSP Is pt being admited?: Yes Does the pt Need Aspirin: Yes Condition: Stable Instructions: Diabetes Mellitus Type 2 in Adults (ED), Chronic Obstructive Pulmonary Disease (ED) Referrals: PRIMARY CAREMD [Primary Care Provider] - 3-5 Days Time of Disposition: 07:54
[2019-05-28] MEDS ORDERED: K-DUR PO ONE (06:26)
--- NOTE | 2019-05-28 06:38 | XRay Report ---
CHEST 1 VIEW 6:13 AM INDICATION / CLINICAL INFORMATION: Edema. COMPARISON: 05/01/2019. FINDINGS: SUPPORT DEVICES: None. HEART / MEDIASTINUM: Mild generalized cardiomegaly is stable. Pulmonary vasculature is normal. LUNGS / PLEURA: No significant pulmonary or pleural abnormality. Mild interstitial edema has resolved . There is no evidence of pneumothorax. ADDITIONAL FINDINGS: No significant additional findings. IMPRESSION: Cardiomegaly without evidence of pulmonary edema. Signer Name: Marshall Leal MD Signed: 05/28/2019 6:33 AM Workstation Name: [id number]
[2019-05-28 06:53] LABS: INR 1.25 (0.87-1.13)
[2019-05-28 06:58] LABS: Creatine Kinase MB 6.4 ng/mL (0.0-4.0)
[2019-05-28] MEDS ORDERED: ASPIRIN PO ONE (07:54)
[2019-05-28 07:59] LABS: Bacteria,Urine 1+ /HPF (Negative); Bilirubin,Urine NEG (Negative); Blood,Urine NEG (Negative); Color,Urine Yellow (Yellow); Mucus,Urine FEW /HPF; Protein,Urine <15 mg/dL mg/dL (Negative); Urobilinogen,Urine < 2.0 mg/dL (<2.0)
[2019-05-28] MEDS ORDERED: ASPIRIN ONE (09:08)
--- NOTE | 2019-05-28 17:32 | History and Physical Report ---
History of Present Illness Date of examination: 05/28/19 Date of admission: 05/28/19 07:54 Medications and Allergies Allergies Allergy/AdvReac Type Severity Reaction Status Date / Time No Known Allergies Allergy Verified 09/21/18 07:30 Home Medications Medication Instructions Recorded Confirmed Last Taken Type Metformin HCl [Glucophage] 1,000 mg PO BID #60 tablet 11/16/15 05/28/19 09/17/18 Rx Albuterol Sulfate [Albuterol 0.63% 0.63 mg IH TID PRN #90 vial 05/01/19 05/28/19 Unknown Rx NEBS] Albuterol Sulfate [Proventil Hfa] 6.7 gm IH Q4H PRN #1 hfa.aer.ad 05/01/19 05/28/19 Unknown Rx Ibuprofen [Motrin] 600 mg PO Q8H PRN #25 tablet 05/26/19 05/28/19 Unknown Rx AtorvaSTATin [Lipitor] 40 mg PO QHS 05/28/19 05/28/19 Unknown History Furosemide [Lasix] 20 mg PO QDAY 05/28/19 05/28/19 Unknown History Gabapentin [Neurontin] 300 mg PO BID 05/28/19 05/28/19 Unknown History Haloperidol [Haldol] 5 mg PO BID 05/28/19 05/28/19 Unknown History Meloxicam [Mobic] 7.5 mg PO BID 05/28/19 05/28/19 Unknown History Potassium Chloride [Klor-Con 8] 8 meq PO QDAY 05/28/19 05/28/19 Unknown History traZODone [Desyrel] 100 mg PO QHS 05/28/19 05/28/19 Unknown History Active Meds: Active Medications Nicotine (Habitrol) 7 mg TD QDAY EMILY Exam - Constitutional Vitals: Temp Pulse Resp BP Pulse Ox 98.0 F 90 20 118/52 99 05/28/19 16:51 05/28/19 17:03 05/28/19 17:00 05/28/19 16:51 05/28/19 17:00 Results - Labs CBC & Chem 7: 05/28/19 03:37 05/28/19 03:37 Labs: Laboratory Last Values WBC 9.6 K/mm3 (4.5-11.0) 05/28/19 03:37 RBC 5.32 M/mm3 (3.65-5.03) H 05/28/19 03:37 Hgb 16.7 gm/dl (11.8-15.2) H 05/28/19 03:37 Hct 48.9 % (35.5-45.6) H 05/28/19 03:37 MCV 92 fl (84-94) 05/28/19 03:37 MCH 31 pg (28-32) 05/28/19 03:37 MCHC 34 % (32-34) 05/28/19 03:37 RDW 15.1 % (13.2-15.2) 05/28/19 03:37 Plt Count 218 K/mm3 (140-440) 05/28/19 03:37 Lymph % (Auto) 29.8 % (13.4-35.0) 05/28/19 03:37 [place] % (Auto) 7.5 % (0.0-7.3) H 05/28/19 03:37 Eos % (Auto) 0.3 % (0.0-4.3) 05/28/19 03:37 Baso % (Auto) 0.6 % (0.0-1.8) 05/28/19 03:37 Lymph # 2.9 K/mm3 (1.2-5.4) 05/28/19 03:37 [place] # 0.7 K/mm3 (0.0-0.8) 05/28/19 03:37 Eos # 0.0 K/mm3 (0.0-0.4) 05/28/19 03:37 Baso # 0.1 K/mm3 (0.0-0.1) 05/28/19 03:37 Seg Neutrophils % 61.8 % (40.0-70.0) 05/28/19 03:37 Seg Neutrophils # 5.9 K/mm3 (1.8-7.7) 05/28/19 03:37 PT 15.4 Sec. (12.2-14.9) H 05/28/19 06:30 INR 1.25 (0.87-1.13) H 05/28/19 06:30 APTT 20.0 Sec. (24.2-36.6) L 05/28/19 06:30 183.31 ng/mlDDU (0-234) 05/28/19 06:30 Sodium 134 mmol/L (137-145) L 05/28/19 03:37 Potassium 3.8 mmol/L (3.6-5.0) 05/28/19 03:37 Chloride 98.1 mmol/L (98-107) 05/28/19 03:37 Carbon Dioxide 26 mmol/L (22-30) 05/28/19 03:37 14 mmol/L 05/28/19 03:37 BUN 11 mg/dL (9-20) 05/28/19 03:37 0.9 mg/dL (0.8-1.5) 05/28/19 03:37 Estimated GFR > 60 ml/min 05/28/19 03:37 12 % 05/28/19 03:37 Glucose 323 mg/dL (75-100) H 05/28/19 03:37 POC Glucose 344 (70-105) H 05/28/19 16:38 Calcium 9.0 mg/dL (8.4-10.2) 05/28/19 03:37 Magnesium 1.80 mg/dL (1.7-2.3) 05/28/19 06:30 1.60 mg/dL (0.1-1.2) H 05/28/19 03:37 AST 24 units/L (5-40) 05/28/19 03:37 ALT 32 units/L (7-56) 05/28/19 03:37 95 units/L (35-129) 05/28/19 03:37 188 units/L (55-170) H 05/28/19 06:30 CK-MB (CK-2) 6.4 ng/mL (0.0-4.0) H 05/28/19 06:30 CK-MB (CK-2) Rel Index 3.4 (0-4) 05/28/19 06:30 0.023 ng/mL (0.00-0.029) 05/28/19 06:30 NT-Pro-B Natriuret Pep 3794 pg/mL (0-900) H 05/28/19 03:37 5.9 g/dL (6.3-8.2) L 05/28/19 03:37 3.5 g/dL (3.9-5) L 05/28/19 03:37 1.5 % 05/28/19 03:37 Yellow (Yellow) 05/28/19 07:25 Clear (Clear) 05/28/19 07:25 5.0 (5.0-7.0) 05/28/19 07:25 Ur Specific [place] 1.010 (1.003-1.030) 05/28/19 07:25 <15 mg/dl mg/dL (Negative) 05/28/19 07:25 >=500 mg/dL (Negative) 05/28/19 07:25 Neg mg/dL (Negative) 05/28/19 07:25 Neg (Negative) 05/28/19 07:25 Neg (Negative) 05/28/19 07:25 Neg (Negative) 05/28/19 07:25 < 2.0 mg/dL (<2.0) 05/28/19 07:25 Ur Leukocyte Esterase Tr (Negative) 05/28/19 07:25 10.0 /HPF (0.0-6.0) H 05/28/19 07:25 1.0 /HPF (0.0-6.0) 05/28/19 07:25 U Epithel Cells (Auto) 1.0 /HPF (0-13.0) 05/28/19 07:25 1+ /HPF (Negative) 05/28/19 07:25 Few /HPF 05/28/19 07:25
[2019-05-28] MEDS ORDERED: IBUPROFEN PO PRN (17:33)
[2019-05-28] MEDS ORDERED: PROAIR IH PRN (17:33)
[2019-05-28] MEDS ORDERED: REGLAN IV PRN (17:34)
[2019-05-28] MEDS ORDERED: ZOFRAN IV PRN (17:34)
[2019-05-28] MEDS ORDERED: DILAUDID IV PRN (17:34)
[2019-05-28] MEDS ORDERED: SODIUM CHLORIDE FLUSH SYRINGE 10 ML IV PRN (17:34)
[2019-05-28] MEDS ORDERED: PERCOCET 5/325 PO PRN (17:34)
[2019-05-28] MEDS ORDERED: TYLENOL PO PRN (17:34)
[2019-05-28] MEDS ORDERED: PROVENTIL IH PRN ×2 (17:38→17:41)
[2019-05-28] MEDS: SOLU-Medrol IV SCH ×2 (18:10→21:36)
[2019-05-28] MEDS: K-DUR PO SCH (18:10)
[2019-05-28] MEDS: LASIX IV SCH (18:11)
[2019-05-28] MEDS: ROCEPHIN/NS 2 GM/100 ML 2 GM/100 ML BAG IV SCH (18:39)
[2019-05-28] MEDS: HABITROL TD SCH (18:39)
[2019-05-28] MEDS: DUONEB *Not for PRN Use IH SCH (20:36)
[2019-05-28] MEDS: MOBIC PO SCH (21:37)
[2019-05-28] MEDS: NEURONTIN PO SCH (21:38)
[2019-05-28] MEDS: HumaLOG SUB-Q SCH (21:39)
[2019-05-28] MEDS: PEPCID PO SCH (21:39)
[2019-05-28] MEDS: HALDOL PO SCH (21:39)
[2019-05-28] MEDS: GLUCOPHAGE PO SCH (21:39)
[2019-05-28] MEDS: SODIUM CHLORIDE FLUSH SYRINGE 10 ML IV SCH (21:40)
[2019-05-28] MEDS ORDERED: DESYREL PO SCH (22:00)
[2019-05-28] MEDS ORDERED: NON-FORMULARY (Metformin Hcl [Glucophage] 1,000 MG) PO SCH (22:00)
[2019-05-29] MEDS: SOLU-Medrol IV SCH ×2 (05:42→16:49)
[2019-05-29] MEDS: K-DUR PO SCH ×2 (05:43→18:43)
[2019-05-29] MEDS: LASIX IV SCH ×2 (05:43→18:43)
[2019-05-29] MEDS: DUONEB *Not for PRN Use IH SCH ×3 (08:03→16:06)
[2019-05-29] MEDS: GLUCOPHAGE PO SCH (09:27)
[2019-05-29] MEDS: ROCEPHIN/NS 2 GM/100 ML 2 GM/100 ML BAG IV SCH (09:27)
[2019-05-29] MEDS: HABITROL TD SCH (09:27)
[2019-05-29] MEDS: HumaLOG SUB-Q SCH ×3 (09:28→17:04)
[2019-05-29] MEDS: PEPCID PO SCH (09:29)
[2019-05-29] MEDS: MOBIC PO SCH (09:29)
[2019-05-29] MEDS: SODIUM CHLORIDE FLUSH SYRINGE 10 ML IV SCH (09:34)
[2019-05-29] MEDS: NEURONTIN PO SCH (09:39)
[2019-05-29] MEDS: HALDOL PO SCH (09:39)
[2019-05-29] MEDS ORDERED: KLOR-CON 8 PO SCH (10:00)
--- NOTE | 2019-05-29 10:58 | Consultation ---
History of Present Illness Consult date: 05/29/19 Consult reason: congestive heart failure, shortness of breath History of present illness: Impression Pt present with progressive shortness of breath and edema CXR cardiomegaly, minimal edema NTproBNP [id number] feels better with IV diuresis H/o CAD stent approx 20 yrs ago, no chest pain at present time COPD DM, poorly controlled Plan IV diureiss over ' Echo pending Nuclear stress on Friday to assess ischemic threshold. No chest pain and trop negative at this time Past History Past Medical History: CAD, diabetes, other (COPD) Social history: no significant social history Medications and Allergies Allergies Allergy/AdvReac Type Severity Reaction Status Date / Time No Known Allergies Allergy Verified 09/21/18 07:30 Home Medications Medication Instructions Recorded Confirmed Last Taken Type Metformin HCl [Glucophage] 1,000 mg PO BID #60 tablet 11/16/15 05/28/19 09/17/18 Rx Albuterol Sulfate [Albuterol 0.63% 0.63 mg IH TID PRN #90 vial 05/01/19 05/28/19 Unknown Rx NEBS] Albuterol Sulfate [Proventil Hfa] 6.7 gm IH Q4H PRN #1 hfa.aer.ad 05/01/19 05/28/19 Unknown Rx Ibuprofen [Motrin] 600 mg PO Q8H PRN #25 tablet 05/26/19 05/28/19 Unknown Rx AtorvaSTATin [Lipitor] 40 mg PO QHS 05/28/19 05/28/19 Unknown History Furosemide [Lasix] 20 mg PO QDAY 05/28/19 05/28/19 Unknown History Gabapentin [Neurontin] 300 mg PO BID 05/28/19 05/28/19 Unknown History Haloperidol [Haldol] 5 mg PO BID 05/28/19 05/28/19 Unknown History Meloxicam [Mobic] 7.5 mg PO BID 05/28/19 05/28/19 Unknown History Potassium Chloride [Klor-Con 8] 8 meq PO QDAY 05/28/19 05/28/19 Unknown History traZODone [Desyrel] 100 mg PO QHS 05/28/19 05/28/19 Unknown History Active Meds: Active Medications Acetaminophen (Tylenol) 650 mg PO Q4H PRN PRN Reason: Pain MILD(1-3)/Fever >100.5/TERESA Albuterol (Proventil) 2.5 mg IH Q4HRT PRN PRN Reason: Shortness Of Breath Albuterol (Proventil) 2.5 mg IH Q4HRT PRN PRN Reason: Shortness Of Breath Albuterol/Ipratropium (Duoneb *Not For Prn Use*) 1 ampul IH QIDRT [facility] Last Admin: 05/29/19 08:03 Dose: 1 ampul Documented by: Atorvastatin Calcium (Lipitor) 40 mg PO QHS [facility] Last Admin: 05/28/19 21:38 Dose: 40 mg Documented by: Famotidine (Pepcid) 20 mg PO BID [facility] Last Admin: 05/29/19 09:29 Dose: 20 mg Documented by: Furosemide (Lasix) 40 mg IV 0600,1800 [facility] Last Admin: 05/29/19 05:43 Dose: 40 mg Documented by: Gabapentin (Neurontin) 300 mg PO BID [facility] Last Admin: 05/29/19 09:39 Dose: Not Given Documented by: Haloperidol (Haldol) 5 mg PO BID [facility] Last Admin: 05/29/19 09:39 Dose: Not Given Documented by: Hydromorphone HCl (Dilaudid) 0.5 mg IV Q3H PRN PRN Reason: Pain , Severe (7-10) Ceftriaxone Sodium (Rocephin/Ns 2 Gm/100 Ml) 2 gm in 100 mls @ 200 mls/hr IV Q24HR [facility]; Protocol Last Admin: 05/29/19 09:27 Dose: 200 mls/hr Documented by: Ibuprofen (Ibuprofen) 600 mg PO Q8H PRN PRN Reason: Pain Insulin Human Lispro (Humalog) 0 unit SUB-Q ACHS [facility]; Protocol Last Admin: 05/29/19 09:28 Dose: 8 unit Documented by: Meloxicam (Mobic) 7.5 mg PO BID [facility] Last Admin: 05/29/19 09:29 Dose: 7.5 mg Documented by: Metformin HCl (Glucophage) 1,000 mg PO BID [facility] Last Admin: 05/29/19 09:27 Dose: 1,000 mg Documented by: Methylprednisolone Sodium Succinate (Solu-Medrol) 60 mg IV Q8HR [facility] Last Admin: 05/29/19 05:42 Dose: 60 mg Documented by: Metoclopramide HCl (Reglan) 10 mg IV Q6H PRN PRN Reason: Nausea And Vomiting Nicotine (Habitrol) 7 mg TD QDAY [facility] Last Admin: 05/29/19 09:27 Dose: 7 mg Documented by: Ondansetron HCl (Zofran) 4 mg IV Q8H PRN PRN Reason: Nausea And Vomiting Oxycodone/Acetaminophen (Percocet 5/325) 1 tab PO Q6H PRN PRN Reason: Pain, Moderate (4-6) Potassium Chloride (Klor-Con 8) 8 meq PO QDAY [facility] Potassium Chloride (K-Dur) 20 meq PO Q12H [facility] Last Admin: 05/29/19 05:43 Dose: 20 meq Documented by: Sodium Chloride (Sodium Chloride Flush Syringe 10 Ml) 10 ml IV BID [facility] Last Admin: 05/29/19 09:34 Dose: 10 ml Documented by: Sodium Chloride (Sodium Chloride Flush Syringe 10 Ml) 10 ml IV PRN PRN PRN Reason: LINE FLUSH Trazodone HCl (Desyrel) 100 mg PO QHS [facility] Last Admin: 05/28/19 21:39 Dose: 100 mg Documented by: Review of Systems All systems: negative (stated in impression) Physical Examination Vital Signs Temp Pulse Resp BP Pulse Ox 98.3 F 101 H 18 124/85 99 05/28/19 03:21 05/28/19 03:21 05/28/19 03:21 05/28/19 03:21 05/28/19 03:21 General appearance: no acute distress HEENT: Positive: PERRL Neck: Positive: neck supple Cardiac: Positive: Reg Rate and Rhythm Lungs: Positive: Normal Exam Neuro: Positive: Grossly Intact Abdomen: Positive: Soft Extremities: Present: +1 Edema Results 05/28/19 03:37 05/28/19 03:37
[2019-05-29 15:09] LABS: Basophils % (Auto) 0.3 % (0.0-1.8); Hematocrit 48.8 % (35.5-45.6); Hemoglobin 16.4 gm/dl (11.8-15.2); Lymphocytes # (Auto) 1.6 K/mm3 (1.2-5.4); Mean Corpuscular HGB Conc 34 % (32-34); Mean Corpuscular Volume 93 fl (84-94); Monocytes # (Auto) 0.7 K/mm3 (0.0-0.8); Monocytes % (Auto) 4.6 % (0.0-7.3); Platelet Count 231 K/mm3 (140-440); Red Blood Count 5.26 M/mm3 (3.65-5.03); Red Cell Distribution Width 15.3 % (13.2-15.2)
[2019-05-29 15:29] LABS: Alanine Aminotransferase 25 units/L (7-56); BUN/Creatinine Ratio 17; Blood Urea Nitrogen 20 mg/dL (9-20); Calcium 9.2 mg/dL (8.4-10.2); Hemolysis Index 23
[2019-05-29 16:41] VITALS: BP 101/64
--- NOTE | 2019-05-29 16:47 | Progress Note ---
Subjective Date of service: 05/29/19 Objective - Constitutional Vitals: Vital Signs - 12hr 05/29/19 05/29/19 05/29/19 07:38 08:00 08:03 Temperature 97.7 F Pulse Rate 69 Pulse Rate [ 79 Bilateral Throughout] Pulse Rate [ 80 Radial] Respiratory 16 18 Rate Respiratory 20 Rate [Bilateral Throughout] Blood Pressure 94/66 O2 Sat by Pulse 96 97 Oximetry 05/29/19 05/29/19 13:20 14:39 Temperature 97.8 F Pulse Rate 80 Pulse Rate [ 82 Bilateral Throughout] Pulse Rate [ Radial] Respiratory 16 Rate Respiratory 20 Rate [Bilateral Throughout] Blood Pressure 101/64 O2 Sat by Pulse 99 Oximetry - Labs CBC & Chem 7: 05/29/19 15:00 05/29/19 14:56 Labs: Abnormal lab results 05/28/19 05/28/19 05/29/19 Range/Units 03:37 21:02 07:12 WBC (4.5-11.0) K/mm3 RBC (3.65-5.03) M/mm3 Hgb (11.8-15.2) gm/dl Hct (35.5-45.6) % RDW (13.2-15.2) % Lymph % (Auto) (13.4-35.0) % Seg Neutrophils % (40.0-70.0) % Seg Neutrophils # (1.8-7.7) K/mm3 Sodium (137-145) mmol/L Chloride (98-107) mmol/L Glucose (75-100) mg/dL POC Glucose 344 H 367 H (70-105) Hemoglobin A1c > 20.1 H (4-6) % Total Protein (6.3-8.2) g/dL Albumin (3.9-5) g/dL 05/29/19 05/29/19 05/29/19 Range/Units 11:46 14:56 15:00 WBC 15.8 H (4.5-11.0) K/mm3 RBC 5.26 H (3.65-5.03) M/mm3 Hgb 16.4 H (11.8-15.2) gm/dl Hct 48.8 H (35.5-45.6) % RDW 15.3 H (13.2-15.2) % Lymph % (Auto) 10.0 L (13.4-35.0) % Seg Neutrophils % 85.1 H (40.0-70.0) % Seg Neutrophils # 13.4 H (1.8-7.7) K/mm3 Sodium 136 L (137-145) mmol/L Chloride 96.6 L (98-107) mmol/L Glucose 360 H (75-100) mg/dL POC Glucose 371 H (70-105) Hemoglobin A1c (4-6) % Total Protein 5.3 L (6.3-8.2) g/dL Albumin 3.0 L (3.9-5) g/dL 05/29/19 Range/Units 16:46 WBC (4.5-11.0) K/mm3 RBC (3.65-5.03) M/mm3 Hgb (11.8-15.2) gm/dl Hct (35.5-45.6) % RDW (13.2-15.2) % Lymph % (Auto) (13.4-35.0) % Seg Neutrophils % (40.0-70.0) % Seg Neutrophils # (1.8-7.7) K/mm3 Sodium (137-145) mmol/L Chloride (98-107) mmol/L Glucose (75-100) mg/dL POC Glucose 336 H (70-105) Hemoglobin A1c (4-6) % Total Protein (6.3-8.2) g/dL Albumin (3.9-5) g/dL
[2019-05-29] MEDS ORDERED: DUONEB *Not for PRN Use IH SCH (20:00)
== END 2019-05-29 08:30 | disposition left against medical advice (07) | DRG 293 ==
LOC: ED 03:20 → 4A 07:54
PROVIDERS: ADMIT Internal Medicine; ATTEND Internal Medicine
DX: I50.9 Heart failure, unspecified (principal); E11.65 Type 2 diabetes mellitus with hyperglycemia; J44.9 Chronic obstructive pulmonary disease, unspecified; K21.9 Gastro-esophageal reflux disease without esophagitis; F20.9 Schizophrenia, unspecified; I25.10 Atherosclerotic heart disease of native coronary artery without angina pectoris; F17.200 Nicotine dependence, unspecified, uncomplicated; Z53.21 Procedure and treatment not carried out due to patient leaving prior to being seen by health care provider; G47.30 Sleep apnea, unspecified; Z91.14 Patient's other noncompliance with medication regimen; Z79.51 Long term (current) use of inhaled steroids; Z79.899 Other long term (current) drug therapy; Z79.84 Long term (current) use of oral hypoglycemic drugs; Z95.5 Presence of coronary angioplasty implant and graft
CPT/HCPCS: 36415; 71045; 80053; 81001; 82550; 82553; 82962; 83036; 83735; 83880; 84484; 85025; 85379; 85610; 85730; 87086; 94640; 96374; 96375; G0378; A9270-GY; J0696; J1815; J1940; J2930

== ENCOUNTER 2019-06-14 12:43 | Emergency (ER) | payer MEDICAID ==
--- NOTE | 2019-06-14 12:45 | Emergency Department Report ---
Blank Doc - Documentation Documentation: This is a 53-year-old male that presents with CP and SOB. This initial assessment/diagnostic orders/clinical plan/treatment(s) is/are subject to change based on patient's health status, clinical progression and re- assessment by fellow clinical providers in the ED. Further treatment and workup at subsequent clinical providers discretion. Patient/guardians urged not to elope from the ED as their condition may be serious if not clinically assessed and managed. Initial orders include: 1- Patient sent to [facility] for further evaluation and treatment 2- labs 3- EKG 4- CXR
[2019-06-14 12:48] VITALS: BP 117/73
--- NOTE | 2019-06-14 13:41 | XRay Report ---
CHEST 2 VIEWS INDICATION: Chest Pain. COMPARISON: 05/28/2019 FINDINGS: Support devices: None. Heart: Borderline to mild cardiomegaly appears stable. Lungs/pleura: Bronchovascular markings in the lower lung zones are slightly prominent. This appears t o represent congestive changes. No evidence for consolidation or large pleural effusion. No pneumoth orax. Additional findings: None. IMPRESSION: Borderline to mild cardiomegaly. Mild vascular congestion. Signer Name: Zay Rdz Jr, MD Signed: 06/14/2019 1:37 PM Workstation Name: [id number]
== END 2019-06-14 15:00 | disposition left against medical advice (07) ==
LOC: ED 12:43
DX: R07.89 Other chest pain (principal); R06.02 Shortness of breath; Z53.21 Procedure and treatment not carried out due to patient leaving prior to being seen by health care provider
CPT/HCPCS: 71046; 93005; 93010

== ENCOUNTER 2019-07-12 12:49 | Inpatient (IN) | payer MEDICAID ==
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
--- NOTE | 2019-07-12 14:13 | Emergency Department Report ---
Blank Doc - Documentation Documentation: 53-year-old male that presents with bilateral leg swelling. This initial assessment/diagnostic orders/clinical plan/treatment(s) is/are subject to change based on patient's health status, clinical progression and re- assessment by fellow clinical providers in the ED. Further treatment and workup at subsequent clinical providers discretion. Patient/guardians urged not to elope from the ED as their condition may be serious if not clinically assessed and managed. Initial orders include: 1- Patient sent to MAIN ED for further evaluation and treatment 2- labs 3- EKG
[2019-07-12 14:53] LABS: Basophils # (Auto) 0.1 K/mm3 (0.0-0.1); Basophils % (Auto) 0.9 % (0.0-1.8); Eosinophils % (Auto) 0.5 % (0.0-4.3); Hematocrit 50.4 % (35.5-45.6); Hemoglobin 16.6 gm/dl (11.8-15.2); Lymphocytes # (Auto) 1.4 K/mm3 (1.2-5.4); Lymphocytes % (Auto) 19.3 % (13.4-35.0); Mean Corpuscular HGB Conc 33 % (32-34); Mean Corpuscular Volume 93 fl (84-94); Monocytes # (Auto) 0.5 K/mm3 (0.0-0.8); Monocytes % (Auto) 6.5 % (0.0-7.3); Platelet Count 260 K/mm3 (140-440); Red Cell Distribution Width 15.4 % (13.2-15.2)
--- NOTE | 2019-07-12 15:01 | XRay Report ---
CHEST 2 VIEWS INDICATION: Chest pain, cough, shortness of breath, fever. COMPARISON: 06/14/2019 FINDINGS: Support devices: None. Heart: Heart size is within normal limits on today's exam. Lungs/pleura: Trace bilateral pleural effusions are suspected on the lateral image. Minor atelectatic changes or scarring is noted in the lingula and lateral right lower lobe. No consolidation or pneumo thorax. Additional findings: None. IMPRESSION: Trace bilateral pleural effusions. Minor atelectatic changes. No obvious pneumonia. Signer Name: Zay Rdz Jr, MD Signed: 07/12/2019 2:56 PM Workstation Name: [id number]
[2019-07-12 15:40] LABS: Alanine Aminotransferase 17 units/L (7-56); Albumin 3.2 g/dL (3.9-5); BUN/Creatinine Ratio 13; Blood Urea Nitrogen 10 mg/dL (9-20); Calcium 8.5 mg/dL (8.4-10.2); Hemolysis Index 11
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
[2019-07-12] MEDS ORDERED: NACL 0.9% 1000 ML 1,000 ML ONE (16:08)
[2019-07-12] MEDS ORDERED: LASIX IV ONE ×2 (16:08→16:24)
[2019-07-12 16:58] LABS: Chol/HDL Ratio 1.88 %; HDL Cholesterol 71 mg/dL (40-59); LDL Cholesterol,Direct 46 mg/dL (50-130)
[2019-07-12] MEDS ORDERED: HumuLIN R IV ONE (17:19)
[2019-07-12] MEDS ORDERED: SODIUM CHLORIDE FLUSH SYRINGE 10 ML IV PRN (17:53)
[2019-07-12] MEDS ORDERED: PROVENTIL IH PRN (17:53)
[2019-07-12] MEDS ORDERED: TYLENOL PO PRN (17:53)
[2019-07-12] MEDS ORDERED: ZOFRAN IV PRN (17:53)
--- NOTE | 2019-07-12 17:53 | History and Physical Report ---
History of Present Illness Chief complaint: Im just swollen History of present illness: 53 YO Male with HTN, DM, Systolic CHF, GERD, Asthma, COPD, CARTER, CAD, Chronic Pain, Schizophrenia presents to ED for evaluation. Pt states that he has experienced swelling to his legs, scrotum, and penis over the past 1 week, with progressively worsening symptoms over the same time frame. Pt acknowledges 15lbs subjective weight loss, shortness of breath, decreased exercise tolerance, dypsnea on exertion, dypsnea at rest. Pt transported to [facility] via private vehicle. Pt seen and evaluated in ED and found to have CHF Decompensation. Pt admitted to telemetry. Cardiology consulted in ED. PT denies Fever, Chills, CP, Palpitations, NVD, Trauma, BRBPR, Productive Cough, Skin Rash, prolonged immobility/travel, Individual/Family History of DVT/PE/Bleeding/Blood Clotting Disorders. No prior admission for review. All listed medication reconciled prior to admission. Past History Past Medical History: arthritis, GERD, heart failure, other (CARTER, Schizophrenia) Past Surgical History: Other (left hand surgery) Social history: single Family history: diabetes, hypertension Medications and Allergies Allergies Allergy/AdvReac Type Severity Reaction Status Date / Time No Known Allergies Allergy Verified 09/21/18 07:30 Home Medications Medication Instructions Recorded Confirmed Last Taken Type Metformin HCl [Glucophage] 1,000 mg PO BID #60 tablet 11/16/15 05/28/19 09/17/18 Rx Albuterol Sulfate [Albuterol 0.63% 0.63 mg IH TID PRN #90 vial 05/01/19 05/28/19 Unknown Rx NEBS] Albuterol Sulfate [Proventil Hfa] 6.7 gm IH Q4H PRN #1 hfa.aer.ad 05/01/19 05/28/19 Unknown Rx Ibuprofen [Motrin] 600 mg PO Q8H PRN #25 tablet 05/26/19 05/28/19 Unknown Rx AtorvaSTATin [Lipitor] 40 mg PO QHS 05/28/19 05/28/19 Unknown History Furosemide [Lasix] 20 mg PO QDAY 05/28/19 05/28/19 Unknown History Gabapentin [Neurontin] 300 mg PO BID 05/28/19 05/28/19 Unknown History Haloperidol [Haldol] 5 mg PO BID 05/28/19 05/28/19 Unknown History Meloxicam [Mobic] 7.5 mg PO BID 05/28/19 05/28/19 Unknown History Potassium Chloride [Klor-Con 8] 8 meq PO QDAY 05/28/19 05/28/19 Unknown History traZODone [Desyrel] 100 mg PO QHS 05/28/19 05/28/19 Unknown History Review of Systems Constitutional: weight gain, no weight loss, no fever, no chills, no sweats Ears, nose, mouth and throat: no ear pain, no ear discharge, no decreased hearing, no nose pain, no nasal discharge, no sinus pressure Cardiovascular: no orthopnea, no palpitations, no edema, no lightheadedness Respiratory: no cough, no cough with sputum, no excessive sputum, no hemoptysis, no shortness of breath Gastrointestinal: no abdominal pain, no nausea, no vomiting, no diarrhea, no change in bowel habits, no hematemesis Genitourinary Male: no dysuria, no hematuria, no discharge Rectal: no pain, no incontinence, no bleeding Musculoskeletal: no neck stiffness, no neck pain, no arm numbness/tingling Integumentary: no rash, no pruritis, no redness, no sores, no wounds, no jaundice Neurological: no transient paralysis, no paralysis, no parathesias, no numbness, no tingling, no seizures, no syncope Psychiatric: no anxiety, no memory loss, no sleep disturbances, no change in appetite, no change in libido, no hallucinations Endocrine: no cold intolerance, no polydipsia, no polyuria, no nocturia, no flushing Hematologic/Lymphatic: no easy bruising, no easy bleeding, no lymphadenopathy Allergic/Immunologic: no urticaria, no allergic rhinitis, no wheezing Exam - Constitutional Vitals: Temp Pulse Resp BP Pulse Ox 98.1 F 84 16 108/84 100 07/12/19 12:55 07/12/19 15:49 07/12/19 17:16 07/12/19 17:16 07/12/19 17:16 General appearance: Present: mild distress - EENT Eyes: Present: PERRL ENT: hearing intact, clear oral mucosa - Neck Neck: Present: supple, normal ROM - Respiratory Respiratory effort: normal Respiratory: bilateral: CTA - Cardiovascular Heart Sounds: Present: S1 & S2. Absent: rub, click - Extremities Extremities: pulses symmetrical Extremity abnormal: edema Peripheral Pulses: within normal limits - Abdominal General gastrointestinal: Present: soft, non-tender, non-distended, normal bowel sounds Male genitourinary: Present: normal - Integumentary Integumentary: Present: clear, warm, dry - Musculoskeletal Musculoskeletal: gait normal, strength equal bilaterally - Psychiatric Psychiatric: appropriate mood/affect, intact judgment & insight - Neurologic Neurologic: CNII-XII intact, moves all extremities Results - Labs CBC & Chem 7: 07/12/19 14:22 07/12/19 14:22 Labs: Abnormal lab results 07/12/19 07/12/19 07/12/19 Range/Units 14:22 14:22 17:35 RBC 5.40 H (3.65-5.03) M/mm3 Hgb 16.6 H (11.8-15.2) gm/dl Hct 50.4 H (35.5-45.6) % RDW 15.4 H (13.2-15.2) % Seg Neutrophils % 72.8 H (40.0-70.0) % Sodium 133 L (137-145) mmol/L Potassium 3.5 L (3.6-5.0) mmol/L Chloride 90.8 L (98-107) mmol/L Glucose 467 H (75-100) mg/dL POC Glucose 430 H (70-105) Total Bilirubin 1.60 H (0.1-1.2) mg/dL Troponin T 0.033 H (0.00-0.029) ng/mL NT-Pro-B Natriuret Pep 7779 H (0-900) pg/mL Total Protein 6.0 L (6.3-8.2) g/dL Albumin 3.2 L (3.9-5) g/dL LDL Cholesterol Direct 46 L (50-130) mg/dL HDL Cholesterol 71 H (40-59) mg/dL Assessment and Plan - Patient Problems (1) CHF exacerbation Current Visit: Yes Status: Acute Qualifiers: Heart failure type: unspecified Qualified Code(s): I50.9 - Heart failure, unspecified Plan to address problem: CHF protocol: Admit to telemetry, Echo, strict I/O, daily weight, BNP, monitor uop q shift, pulse oximetry, supplemental oxygen, thyroid panel, chest x ray, (2) GERD (gastroesophageal reflux disease) Current Visit: Yes Status: Acute Qualifiers: Esophagitis presence: without esophagitis Qualified Code(s): K21.9 - Gastro-esophageal reflux disease without esophagitis Plan to address problem: PPI therapy (3) Arthritis Current Visit: Yes Status: Acute Plan to address problem: Pain control, supportive care, (4) CAD (coronary artery disease) Current Visit: Yes Status: Acute Plan to address problem: risk factory reduction, glucose control, low fat, low cholesterol diet, (5) Schizophrenia Current Visit: Yes Status: Acute Qualifiers: Schizophrenia type: unspecified Qualified Code(s): F20.9 - Schizophrenia, unspecified Plan to address problem: Supportive care, outpatient psychiatry F/U (6) Diabetes Current Visit: Yes Status: Acute Plan to address problem: ADA diet, insulin, accu check, hypoglycemia protocol (7) DVT prophylaxis Current Visit: Yes Status: Acute Plan to address problem: SCD to BLE while in bed, Pt ambulatory
[2019-07-12] MEDS ORDERED: IBUPROFEN PO PRN (17:56)
[2019-07-12] MEDS ORDERED: D50W (25GM) Syringe IV PRN (17:58)
[2019-07-12] MEDS ORDERED: HumaLOG SUB-Q SCH (18:00)
[2019-07-12] MEDS ORDERED: LASIX PO SCH (18:00)
[2019-07-12 18:44] LABS: Free T4 (Free Thyroxine) 1.29 ng/dL (0.76-1.46)
[2019-07-12 19:16] LABS: INR 1.15 (0.87-1.13)
[2019-07-12 19:17] LABS: Partial Thromboplastin Time 32.1 Sec. (24.2-36.6)
[2019-07-12] MEDS: HumaLOG SUB-Q SCH (21:45)
[2019-07-12] MEDS: NEURONTIN PO SCH (21:45)
[2019-07-12] MEDS: DESYREL PO SCH (21:45)
[2019-07-12] MEDS: PEPCID PO SCH (21:45)
[2019-07-12] MEDS: SODIUM CHLORIDE FLUSH SYRINGE 10 ML IV SCH (21:46)
[2019-07-12] MEDS: HALDOL PO SCH (22:33)
[2019-07-12] MEDS: MOBIC PO SCH (22:34)
[2019-07-13 06:14] LABS: Alanine Aminotransferase 13 units/L (7-56); Albumin 2.6 g/dL (3.9-5); BUN/Creatinine Ratio 11; Blood Urea Nitrogen 9 mg/dL (9-20); Hemolysis Index 18
[2019-07-13] MEDS: HumaLOG SUB-Q SCH ×4 (08:00→22:09)
[2019-07-13] MEDS ORDERED: KLOR-CON 8 PO SCH (10:00)
[2019-07-13] MEDS: NEURONTIN PO SCH ×2 (10:45→22:08)
[2019-07-13] MEDS: PEPCID PO SCH ×2 (10:55→22:12)
[2019-07-13] MEDS: HALDOL PO SCH ×2 (11:00→22:08)
[2019-07-13] MEDS: SODIUM CHLORIDE FLUSH SYRINGE 10 ML IV SCH ×2 (11:00→22:08)
--- NOTE | 2019-07-13 11:43 | Progress Note ---
Assessment and Plan 53 YO Male with HTN, DM, Systolic CHF, GERD, Asthma, COPD, CARTER, CAD, Chronic Pain, Schizophrenia presents to ED for evaluation. Pt states that he has experienced swelling to his legs, scrotum, and penis over the past 1 week, with progressively worsening symptoms over the same time frame. Pt acknowledges 15lbs subjective weight loss, shortness of breath, decreased exercise tolerance, dypsnea on exertion, dypsnea at rest. Pt transported to [facility] via private vehicle. Pt seen and evaluated in ED and found to have CHF Decompensation. Pt admitted to telemetry. Cardiology consulted in ED. PT denies Fever, Chills, CP, Palpitations, NVD, Trauma, BRBPR, Productive Cough, Skin Rash, prolonged immobility/travel, Individual/Family History of DVT/PE/Bleeding/Blood Clotting Disorders. No prior admission for review. All listed medication reconciled prior to admission. (1) CHF exacerbation Current Visit: Yes Status: Acute Qualifiers: Heart failure type: unspecified Qualified Code(s): I50.9 - Heart failure, unspecified Plan to address problem: strict I/O, daily weight, Diuresis, acei, beta blockers, statins, Echo showed severe systolic dysfunction with EF of 10-15% monitor uop q shift, (2) GERD (gastroesophageal reflux disease) Current Visit: Yes Status: Acute Qualifiers: Esophagitis presence: without esophagitis Qualified Code(s): K21.9 - Gastro-esophageal reflux disease without esophagitis Plan to address problem: PPI therapy (3) Arthritis Current Visit: Yes Status: Acute Plan to address problem: Pain control, supportive care, (4) CAD (coronary artery disease) Current Visit: Yes Status: Acute Plan to address problem: risk factory reduction, glucose control, low fat, low cholesterol diet, Aspirin, statins, (5) Schizophrenia Current Visit: Yes Status: Acute Qualifiers: Schizophrenia type: unspecified Qualified Code(s): F20.9 - Schizophrenia, unspecified Plan to address problem: Supportive care, outpatient psychiatry F/U (6) Diabetes Current Visit: Yes Status: Acute Plan to address problem: ADA diet, insulin, accu check, hypoglycemia protocol (7) DVT prophylaxis Current Visit: Yes Status: Acute Plan to address problem: SCD to BLE while in bed, Pt ambulatory Subjective Date of service: 07/13/19 Principal diagnosis: Acute on chronic systolic HF, CAD, GERD, T2DM, Schizophrenia Interval history: Patient lying in bed in no acute distress. Denies any chest pain. No shortness of breath Objective - Exam Narrative Exam: Constitutional: Well-nourished well-developed. In no distress Head: Normocephalic atraumatic Eyes: Pupils are equal round and reactive to light Nose: No enlarged turbinates, no septal deviation. Mouth: Moist mucous membranes. Neck: Supple no thyromegaly. No bruit. No JVD Heart: Regular rate and rhythm, S1-S2 normal. No rubs murmurs or gallop Lungs: Clear to auscultation bilaterally. no rales or rhonchi Abdomen: Soft, nontender. Bowel sound are present. Extremities: No edema, no cyanosis, no clubbing. Neuro: Alert oriented Oriented x3. No focal sensory or motor deficit. Skin: No rashes or hyperpigmented spots Musculoskeletal system: No joint pain or swelling Hematological: No petechia or subcutanous hemorrhages. Immunological: No multiple septic spots on the skin Lymphatic: No generalized lymphadenopathy Psychiatry: Euthymic. Calm. - Constitutional Vitals: Vital Signs - 12hr 07/13/19 07/13/19 04:02 07:32 Temperature 97.8 F 97.9 F Pulse Rate 77 98 H Respiratory 20 18 Rate Blood Pressure 95/60 94/67 O2 Sat by Pulse 98 95 Oximetry - Labs CBC & Chem 7: 07/12/19 14:22 07/13/19 04:57 Labs: Abnormal lab results 07/12/19 07/12/19 07/12/19 Range/Units 14:22 14:22 17:35 RBC 5.40 H (3.65-5.03) M/mm3 Hgb 16.6 H (11.8-15.2) gm/dl Hct 50.4 H (35.5-45.6) % RDW 15.4 H (13.2-15.2) % Seg Neutrophils % 72.8 H (40.0-70.0) % INR (0.87-1.13) Sodium 133 L (137-145) mmol/L Potassium 3.5 L (3.6-5.0) mmol/L Chloride 90.8 L (98-107) mmol/L Carbon Dioxide (22-30) mmol/L Glucose 467 H (75-100) mg/dL POC Glucose 430 H (70-105) Hemoglobin A1c (4-6) % Calcium (8.4-10.2) mg/dL Total Bilirubin 1.60 H (0.1-1.2) mg/dL Troponin T 0.033 H (0.00-0.029) ng/mL NT-Pro-B Natriuret Pep 7779 H (0-900) pg/mL Total Protein 6.0 L (6.3-8.2) g/dL Albumin 3.2 L (3.9-5) g/dL LDL Cholesterol Direct 46 L (50-130) mg/dL HDL Cholesterol 71 H (40-59) mg/dL 07/12/19 07/12/19 07/12/19 Range/Units 17:39 17:39 18:07 RBC (3.65-5.03) M/mm3 Hgb (11.8-15.2) gm/dl Hct (35.5-45.6) % RDW (13.2-15.2) % Seg Neutrophils % (40.0-70.0) % INR 1.15 H (0.87-1.13) Sodium (137-145) mmol/L Potassium (3.6-5.0) mmol/L Chloride (98-107) mmol/L Carbon Dioxide (22-30) mmol/L Glucose (75-100) mg/dL POC Glucose (70-105) Hemoglobin A1c 14.4 H (4-6) % Calcium (8.4-10.2) mg/dL Total Bilirubin (0.1-1.2) mg/dL Troponin T 0.034 H (0.00-0.029) ng/mL NT-Pro-B Natriuret Pep (0-900) pg/mL Total Protein (6.3-8.2) g/dL Albumin (3.9-5) g/dL LDL Cholesterol Direct (50-130) mg/dL HDL Cholesterol (40-59) mg/dL 07/12/19 07/13/19 Range/Units 21:37 04:57 RBC (3.65-5.03) M/mm3 Hgb (11.8-15.2) gm/dl Hct (35.5-45.6) % RDW (13.2-15.2) % Seg Neutrophils % (40.0-70.0) % INR (0.87-1.13) Sodium (137-145) mmol/L Potassium 3.4 L (3.6-5.0) mmol/L Chloride (98-107) mmol/L Carbon Dioxide 31 H (22-30) mmol/L Glucose 71 L (75-100) mg/dL POC Glucose 305 H (70-105) Hemoglobin A1c (4-6) % Calcium 8.0 L (8.4-10.2) mg/dL Total Bilirubin (0.1-1.2) mg/dL Troponin T (0.00-0.029) ng/mL NT-Pro-B Natriuret Pep (0-900) pg/mL Total Protein 4.8 L (6.3-8.2) g/dL Albumin 2.6 L (3.9-5) g/dL LDL Cholesterol Direct (50-130) mg/dL HDL Cholesterol (40-59) mg/dL
--- NOTE | 2019-07-13 11:52 | Consultation ---
History of Present Illness Consult date: 07/13/19 Consult reason: congestive heart failure History of present illness: Patient presented with shortness of breath, lower extremity edema, admitted with CHF exacerbation. Patient gives a history of COPD, hypertension, diabetes, noncompliant with his medications and outpatient followup. Of note, patient was admitted to this hospital 4 weeks ago with similar complaints but left AMA before cardiac workup. Patient denies chest pain. Reports his breathing has improved since his initial treatment in the emergency department. His ECG is sinus rhythm with non-specific Twave abnormalities. An echocardiogram has been ordered, results are pending. Past History Past Medical History: arthritis, GERD, heart failure, other (CARTER, Schizophrenia) Past Surgical History: Other (left hand surgery) Social history: single Family history: diabetes, hypertension Medications and Allergies Allergies Allergy/AdvReac Type Severity Reaction Status Date / Time No Known Allergies Allergy Verified 09/21/18 07:30 Home Medications Medication Instructions Recorded Confirmed Last Taken Type Metformin HCl [Glucophage] 1,000 mg PO BID #60 tablet 11/16/15 07/12/19 1 Day Ago Rx ~07/11/19 Albuterol Sulfate [Albuterol 0.63% 0.63 mg IH TID PRN #90 vial 05/01/19 07/12/19 1 Day Ago Rx NEBS] ~07/11/19 Albuterol Sulfate [Proventil Hfa] 6.7 gm IH Q4H PRN #1 hfa.aer.ad 05/01/19 07/12/19 1 Day Ago Rx ~07/11/19 Ibuprofen [Motrin] 600 mg PO Q8H PRN #25 tablet 05/26/19 07/12/19 1 Day Ago Rx ~07/11/19 AtorvaSTATin [Lipitor] 40 mg PO QHS 05/28/19 07/12/19 1 Day Ago History ~07/11/19 Furosemide [Lasix] 20 mg PO QDAY 05/28/19 07/12/19 1 Day Ago History ~07/11/19 Gabapentin [Neurontin] 300 mg PO BID 05/28/19 07/12/19 1 Day Ago History ~07/11/19 Haloperidol [Haldol] 5 mg PO BID 05/28/19 07/12/19 1 Day Ago History ~07/11/19 Meloxicam [Mobic] 7.5 mg PO BID 05/28/19 07/12/19 1 Day Ago History ~07/11/19 Potassium Chloride [Klor-Con 8] 8 meq PO QDAY 05/28/19 07/12/19 1 Day Ago History ~07/11/19 traZODone [Desyrel] 100 mg PO QHS 05/28/19 07/12/19 1 Day Ago History ~07/11/19 Active Meds: Active Medications Acetaminophen (Tylenol) 650 mg PO Q4H PRN PRN Reason: Pain MILD(1-3)/Fever >100.5/TERESA Albuterol (Proventil) 2.5 mg IH Q4HRT PRN PRN Reason: Shortness Of Breath Atorvastatin Calcium (Lipitor) 40 mg PO QHS [facility] Last Admin: 07/12/19 21:45 Dose: 40 mg Documented by: Dextrose (D50w (25gm) Syringe) 50 ml IV PRN PRN PRN Reason: Hypoglycemia Famotidine (Pepcid) 20 mg PO BID [facility] Last Admin: 07/12/19 21:45 Dose: 20 mg Documented by: Furosemide (Lasix) 20 mg PO BID@0600,1800 [facility] Last Admin: 07/13/19 05:31 Dose: 20 mg Documented by: Gabapentin (Neurontin) 300 mg PO BID [facility] Last Admin: 07/12/19 21:45 Dose: 300 mg Documented by: Haloperidol (Haldol) 5 mg PO BID [facility] Last Admin: 07/12/19 22:33 Dose: 5 mg Documented by: Ibuprofen (Ibuprofen) 600 mg PO Q8H PRN PRN Reason: PAIN Insulin Human Lispro (Humalog) 0 unit SUB-Q [facility]; Protocol Last Admin: 07/12/19 21:45 Dose: 6 unit Documented by: Meloxicam (Mobic) 7.5 mg PO BID [facility] Last Admin: 07/12/19 22:34 Dose: 7.5 mg Documented by: Ondansetron HCl (Zofran) 4 mg IV Q8H PRN PRN Reason: Nausea And Vomiting Potassium Chloride (Klor-Con 8) 8 meq PO QDAY [facility] Sodium Chloride (Sodium Chloride Flush Syringe 10 Ml) 10 ml IV BID [facility] Last Admin: 07/12/19 21:46 Dose: 10 ml Documented by: Sodium Chloride (Sodium Chloride Flush Syringe 10 Ml) 10 ml IV PRN PRN PRN Reason: LINE FLUSH Trazodone HCl (Desyrel) 100 mg PO QHS [facility] Last Admin: 07/12/19 21:45 Dose: 100 mg Documented by: Physical Examination Vital Signs Temp Pulse Resp BP Pulse Ox 98.1 F 90 18 117/86 100 07/12/19 12:55 07/12/19 12:55 07/12/19 12:55 07/12/19 12:55 07/12/19 12:55 General appearance: no acute distress HEENT: Positive: PERRL Neck: Positive: trachea midline Cardiac: Positive: Reg Rate and Rhythm Lungs: Positive: Decreased Breath Sounds Neuro: Positive: Grossly Intact Extremities: Present: +2 Edema Results 07/12/19 14:22 07/13/19 04:57 Cardiac Enzymes 07/12/19 07/13/19 Range/Units 14:22 04:57 AST 21 15 (5-40) units/L Coagulation 07/12/19 Range/Units 17:39 PT 14.4 (12.2-14.9) Sec. INR 1.15 H (0.87-1.13) APTT 32.1 (24.2-36.6) Sec. Lipids 07/12/19 Range/Units 14:22 Triglycerides 118 (2-149) mg/dL Cholesterol 134 (50-199) mg/dL HDL Cholesterol 71 H (40-59) mg/dL Cholesterol/HDL Ratio 1.88 % CBC 07/12/19 Range/Units 14:22 WBC 7.1 (4.5-11.0) K/mm3 RBC 5.40 H (3.65-5.03) M/mm3 Hgb 16.6 H (11.8-15.2) gm/dl Hct 50.4 H (35.5-45.6) % Plt Count 260 (140-440) K/mm3 Lymph # 1.4 (1.2-5.4) K/mm3 Day # 0.5 (0.0-0.8) K/mm3 Eos # 0.0 (0.0-0.4) K/mm3 Baso # 0.1 (0.0-0.1) K/mm3 Comprehensive Metabolic Panel 07/12/19 07/13/19 Range/Units 14:22 04:57 Sodium 133 L 142 D (137-145) mmol/L Potassium 3.5 L 3.4 L (3.6-5.0) mmol/L Chloride 90.8 L 102.3 (98-107) mmol/L Carbon Dioxide 26 31 H (22-30) mmol/L BUN 10 9 (9-20) mg/dL Creatinine 0.8 0.8 (0.8-1.5) mg/dL Glucose 467 H 71 L (75-100) mg/dL Calcium 8.5 8.0 L (8.4-10.2) mg/dL AST 21 15 (5-40) units/L ALT 17 13 (7-56) units/L Alkaline Phosphatase 122 96 (35-129) units/L Total Protein 6.0 L 4.8 L (6.3-8.2) g/dL Albumin 3.2 L 2.6 L (3.9-5) g/dL Assessment and Plan - Patient Problems (1) CHF exacerbation Current Visit: Yes Status: Acute Qualifiers: Qualified Code(s): I50.9 - Heart failure, unspecified
[2019-07-13] MEDS: MOBIC PO SCH ×2 (12:00→22:07)
[2019-07-13] MEDS: MILRINONE-D5W 20 MG/100 ML 20 MG/100 ML BAG IV SCH (17:09)
[2019-07-13] MEDS: LASIX IV SCH ×2 (17:55→19:55)
[2019-07-13] MEDS: COREG PO SCH (22:06)
[2019-07-13] MEDS: DESYREL PO SCH (22:07)
[2019-07-14] MEDS ORDERED: K-DUR PO ONE (01:30)
[2019-07-14] MEDS: LASIX IV SCH ×2 (05:32→18:03)
[2019-07-14 06:27] LABS: BUN/Creatinine Ratio 19; Blood Urea Nitrogen 17 mg/dL (9-20); Calcium 7.8 mg/dL (8.4-10.2); Hemolysis Index 9
[2019-07-14] MEDS: MILRINONE-D5W 20 MG/100 ML 20 MG/100 ML BAG IV SCH (09:02)
[2019-07-14] MEDS: HumaLOG SUB-Q SCH ×4 (09:02→21:30)
--- NOTE | 2019-07-14 09:20 | Progress Note ---
<CAYDEN GAGNON - Last Filed: 07/14/19 10:28> Assessment and Plan Acute CHF exacerbation echocardiogram shows severe, 4 chamber dilated cardiomyopathy, left ventricular systolic ejection fraction 10-15%. Dilated cardiomyopathy, uncertain duration Diabetes Noncompliant Recommendations: Sodium/fluid restrictions. Continue aggressive medical management for systolic heart failure as tolerated. Subjective Date of service: 07/14/19 Principal diagnosis: Acute on chronic systolic HF, CAD, GERD, T2DM, Schizophrenia Interval history: Patient has no complaints. Ectopy seen on telemetry overnight. Patient remained asymptomatic. Objective Vital Signs Temp Pulse Pulse Pulse Resp BP Pulse Ox 07/14/19 07:31 98.3 F 93 H 18 82/55 93 07/14/19 04:49 94/61 07/14/19 03:32 98.4 F 99 H 18 77/50 100 07/13/19 23:57 98.0 F 87 18 81/57 97 07/13/19 22:30 88 18 99 07/13/19 22:07 18 07/13/19 22:06 88 91/66 07/13/19 19:31 98.3 F 88 18 91/66 99 07/13/19 19:13 87 07/13/19 16:37 98.5 F 93 H 18 98/70 100 07/13/19 14:00 72 18 07/13/19 13:00 16 07/13/19 12:00 71 07/13/19 11:46 98.3 F 93 H 18 102/77 94 - Physical Examination General: No Apparent Distress HEENT: Positive: PERRL Neck: Positive: trachea midline Cardiac: Positive: Reg Rate and Rhythm Lungs: Positive: Decreased Breath Sounds Neuro: Positive: Grossly Intact Extremities: Present: +2 Edema - Labs and Meds Comprehensive Metabolic Panel 07/14/19 Range/Units 05:37 Sodium 137 (137-145) mmol/L Potassium 4.2 D (3.6-5.0) mmol/L Chloride 101.6 (98-107) mmol/L Carbon Dioxide 27 (22-30) mmol/L BUN 17 (9-20) mg/dL Creatinine 0.9 (0.8-1.5) mg/dL Glucose 154 H (75-100) mg/dL Calcium 7.8 L (8.4-10.2) mg/dL <OLIVERIO CARRION - Last Filed: 07/14/19 20:53> Assessment and Plan I have seen and evaluated the patient and agree with the assessment and plan. The patient has a history of Acute CHF exacerbation, 4 chamber dilated cardiomyopathy, left ventricular systolic ejection fraction 10-15%, Dilated cardiomyopathy, and non-compliance. Recommend continue goal directed medical therapy for treatment of cardiomyopathy. Continue fluid restriction and gentle diuresis. Objective Vital Signs Temp Pulse Pulse Pulse Resp Resp BP 07/14/19 19:23 98.4 F 91 H 18 102/74 07/14/19 18:10 07/14/19 18:08 84 18 07/14/19 18:07 07/14/19 18:03 86 18 07/14/19 11:33 98.3 F 104 H 18 82/58 07/14/19 10:57 94 H 88/57 07/14/19 10:55 94 H 88/57 07/14/19 10:54 92 H 88/57 07/14/19 10:13 07/14/19 10:00 99 H 07/14/19 07:31 98.3 F 93 H 18 82/55 07/14/19 04:49 94/61 07/14/19 03:32 98.4 F 99 H 18 77/50 07/13/19 23:57 98.0 F 87 18 81/57 07/13/19 22:30 88 18 07/13/19 22:07 18 07/13/19 22:06 88 91/66 BP Pulse Ox 07/14/19 19:23 99 07/14/19 18:10 100 07/14/19 18:08 07/14/19 18:07 100 07/14/19 18:03 92/66 100 07/14/19 11:33 93 07/14/19 10:57 07/14/19 10:55 07/14/19 10:54 07/14/19 10:13 97 07/14/19 10:00 07/14/19 07:31 93 07/14/19 04:49 07/14/19 03:32 100 07/13/19 23:57 97 07/13/19 22:30 99 07/13/19 22:07 07/13/19 22:06 - Labs and Meds Comprehensive Metabolic Panel 07/14/19 Range/Units 05:37 Sodium 137 (137-145) mmol/L Potassium 4.2 D (3.6-5.0) mmol/L Chloride 101.6 (98-107) mmol/L Carbon Dioxide 27 (22-30) mmol/L BUN 17 (9-20) mg/dL Creatinine 0.9 (0.8-1.5) mg/dL Glucose 154 H (75-100) mg/dL Calcium 7.8 L (8.4-10.2) mg/dL
[2019-07-14] MEDS ORDERED: ASPIRIN PO SCH (10:00)
--- NOTE | 2019-07-14 10:19 | Progress Note ---
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 Pt stated that he has experienced swelling to his legs, scrotum, and penis over the past 1 week, with progressively worsening symptoms over the same time frame. Pt acknowledges 15lbs subjective weight loss, shortness of breath, decreased exercise tolerance, dypsnea on exertion, dypsnea at rest. Pt seen and evaluated in ED and found to have CHF exacerbation. Acute on chronic CHF exacerbation strict I/O, daily weight, Diuresis, BREE, beta blockers, statins, Echo showed severe systolic dysfunction with EF of 10-15% monitor uop q shift, Started on Milrinone drip he feels better less edema less shortness of breath GERD (gastroesophageal reflux disease) Cont Protonix Coronary artery disease risk factory reduction, glucose control, low fat, low cholesterol diet, Aspirin, statins, Schizophrenia Supportive care, outpatient psychiatry F/U Diabetes ADA diet, insulin, accu check, hypoglycemia protocol DVT prophylaxis SCD to BLE while in bed, Pt ambulatory History Interval history: patient feels better less leg edema less shortness of breath Hospitalist Physical - Physical exam Narrative exam: Gen: Not in acute distress, Lying in bed HEENT: Normocephalic, atraumatic Neck: supple, no JVD Heart: S1 and S2 reg, no murmurs, rubs or gallop Lungs: Bilateral basal crackles, no rhonchi, no wheeze Abd: soft, non tender, non distended, normal BS, Ext: Bilateral leg edema, no clubbing, no cyanosis Neuro: Awake, alert, oriented X 3, no focal neurological signs - Constitutional Vitals: Temp Pulse Resp BP Pulse Ox 98.3 F 93 H 18 82/55 97 07/14/19 07:31 07/14/19 07:31 07/14/19 07:31 07/14/19 07:31 07/14/19 10:13 General appearance: Present: no acute distress Results - Labs CBC & Chem 7: 07/12/19 14:22 07/14/19 05:37 Labs: Laboratory Last Values WBC 7.1 K/mm3 (4.5-11.0) 07/12/19 14:22 RBC 5.40 M/mm3 (3.65-5.03) H 07/12/19 14:22 Hgb 16.6 gm/dl (11.8-15.2) H 07/12/19 14:22 Hct 50.4 % (35.5-45.6) H 07/12/19 14:22 MCV 93 fl (84-94) 07/12/19 14:22 MCH 31 pg (28-32) 07/12/19 14:22 MCHC 33 % (32-34) 07/12/19 14:22 RDW 15.4 % (13.2-15.2) H 07/12/19 14:22 Plt Count 260 K/mm3 (140-440) 07/12/19 14:22 Lymph % (Auto) 19.3 % (13.4-35.0) 07/12/19 14:22 [place] % (Auto) 6.5 % (0.0-7.3) 07/12/19 14:22 Eos % (Auto) 0.5 % (0.0-4.3) 07/12/19 14:22 Baso % (Auto) 0.9 % (0.0-1.8) 07/12/19 14:22 Lymph # 1.4 K/mm3 (1.2-5.4) 07/12/19 14:22 [place] # 0.5 K/mm3 (0.0-0.8) 07/12/19 14:22 Eos # 0.0 K/mm3 (0.0-0.4) 07/12/19 14:22 Baso # 0.1 K/mm3 (0.0-0.1) 07/12/19 14:22 Seg Neutrophils % 72.8 % (40.0-70.0) H 07/12/19 14:22 Seg Neutrophils # 5.1 K/mm3 (1.8-7.7) 07/12/19 14:22 PT 14.4 Sec. (12.2-14.9) 07/12/19 17:39 INR 1.15 (0.87-1.13) H 07/12/19 17:39 APTT 32.1 Sec. (24.2-36.6) 07/12/19 17:39 Sodium 137 mmol/L (137-145) 07/14/19 05:37 Potassium 4.2 mmol/L (3.6-5.0) D 07/14/19 05:37 Chloride 101.6 mmol/L (98-107) 07/14/19 05:37 Carbon Dioxide 27 mmol/L (22-30) 07/14/19 05:37 Anion Gap 13 mmol/L 07/14/19 05:37 BUN 17 mg/dL (9-20) 07/14/19 05:37 Creatinine 0.9 mg/dL (0.8-1.5) 07/14/19 05:37 Estimated GFR > 60 ml/min 07/14/19 05:37 BUN/Creatinine Ratio 19 % 07/14/19 05:37 Glucose 154 mg/dL (75-100) H 07/14/19 05:37 POC Glucose 162 (70-105) H 07/14/19 07:41 Hemoglobin A1c 14.4 % (4-6) H 07/12/19 18:07 Calcium 7.8 mg/dL (8.4-10.2) L 07/14/19 05:37 Magnesium 2.00 mg/dL (1.7-2.3) 07/14/19 05:37 Total Bilirubin 0.90 mg/dL (0.1-1.2) 07/13/19 04:57 AST 15 units/L (5-40) 07/13/19 04:57 ALT 13 units/L (7-56) 07/13/19 04:57 Alkaline Phosphatase 96 units/L (35-129) 07/13/19 04:57 Troponin T 0.034 ng/mL (0.00-0.029) H 07/12/19 17:39 NT-Pro-B Natriuret Pep 7779 pg/mL (0-900) H 07/12/19 14:22 Total Protein 4.8 g/dL (6.3-8.2) L 07/13/19 04:57 Albumin 2.6 g/dL (3.9-5) L 07/13/19 04:57 Albumin/Globulin Ratio 1.2 % 07/13/19 04:57 Triglycerides 118 mg/dL (2-149) 07/12/19 14:22 Cholesterol 134 mg/dL (50-199) 07/12/19 14:22 LDL Cholesterol Direct 46 mg/dL (50-130) L 07/12/19 14:22 HDL Cholesterol 71 mg/dL (40-59) H 07/12/19 14:22 Cholesterol/HDL Ratio 1.88 % 07/12/19 14:22 TSH 1.400 mlU/mL (0.270-4.200) 07/12/19 18:07 Free T4 1.29 ng/dL (0.76-1.46) 07/12/19 18:07 Active Medications - Current Medications Current Medications: Generic Name Dose Route Start Last Admin Trade Name Freq PRN Reason Stop Dose Admin Acetaminophen 650 mg 07/12/19 17:53 Tylenol PO Q4H PRN Pain MILD(1-3)/Fever >100.5/TERESA Albuterol 2.5 mg 07/12/19 17:53 Proventil IH Q4HRT PRN Shortness Of Breath Aspirin 81 mg 07/14/19 10:00 Halfprin Ec PO QDAY EMILY Atorvastatin Calcium 40 mg 07/12/19 22:00 07/13/19 22:07 Lipitor PO 40 mg QHS EMILY Administration Carvedilol 3.125 mg 07/13/19 22:00 07/13/19 22:06 Coreg PO Not Given BID EMILY Dextrose 50 ml 07/12/19 17:58 D50w (25gm) Syringe IV PRN PRN Hypoglycemia Famotidine 20 mg 07/12/19 22:00 07/13/19 22:12 Pepcid PO 20 mg BID EMILY Administration Furosemide 40 mg 07/13/19 18:00 07/14/19 05:32 Lasix IV Not Given 0600,1800 EMILY Gabapentin 300 mg 07/12/19 22:00 07/13/19 22:08 Neurontin PO 300 mg BID EMILY Administration Haloperidol 5 mg 07/12/19 22:00 07/13/19 22:08 Haldol PO 5 mg BID EMILY Administration Milrinone Lactate/Dextrose 20 mg in 100 mls @ 4.793 mls/hr 07/13/19 15:00 07/14/19 09:02 Milrinone-D5w 20 Mg/100 Ml IV 07/16/19 14:59 0.25 mcg/kg/min TITR EMILY 4.793 mls/hr Administration 0.25 MCG/KG/MIN Ibuprofen 600 mg 07/12/19 17:56 Ibuprofen PO Q8H PRN PAIN Insulin Human Lispro 0 unit 07/12/19 22:00 07/14/19 09:02 Humalog SUB-Q 2 unit ACHS EMILY Administration Protocol Lisinopril 2.5 mg 07/14/19 10:00 Zestril PO QDAY EMILY Meloxicam 7.5 mg 07/12/19 22:00 07/13/19 22:07 Mobic PO 7.5 mg BID EMILY Administration Ondansetron HCl 4 mg 07/12/19 17:53 Zofran IV Q8H PRN Nausea And Vomiting Sodium Chloride 10 ml 07/12/19 22:00 07/13/19 22:08 Sodium Chloride Flush Syringe 10 Ml IV 10 ml BID EMILY Administration Sodium Chloride 10 ml 07/12/19 17:53 Sodium Chloride Flush Syringe 10 Ml IV PRN PRN LINE FLUSH Spironolactone 25 mg 07/14/19 10:00 Aldactone PO QDAY EMILY Trazodone HCl 100 mg 07/12/19 22:00 07/13/19 22:07 Desyrel PO 100 mg QHS EMILY Administration
[2019-07-14] MEDS: HALDOL PO SCH ×2 (10:54→21:29)
[2019-07-14] MEDS: PEPCID PO SCH ×2 (10:54→21:26)
[2019-07-14] MEDS: NEURONTIN PO SCH ×2 (10:54→21:29)
[2019-07-14] MEDS: HALFPRIN EC PO SCH (10:54)
[2019-07-14] MEDS: COREG PO SCH ×2 (10:54→21:28)
[2019-07-14] MEDS: ALDACTONE PO SCH (10:55)
[2019-07-14] MEDS: SODIUM CHLORIDE FLUSH SYRINGE 10 ML IV SCH ×2 (10:56→21:30)
[2019-07-14] MEDS: ZESTRIL PO SCH (10:57)
[2019-07-14] MEDS: MOBIC PO SCH ×2 (11:30→21:28)
[2019-07-14] MEDS: DESYREL PO SCH (21:29)
[2019-07-15] MEDS: LASIX IV SCH ×2 (06:33→17:46)
[2019-07-15] MEDS: MILRINONE-D5W 20 MG/100 ML 20 MG/100 ML BAG IV SCH (06:47)
[2019-07-15] MEDS: PROVENTIL IH SCH ×3 (07:56→20:24)
--- NOTE | 2019-07-15 09:01 | Progress Note ---
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 Pt stated that he has experienced swelling to his legs, scrotum, and penis over the past 1 week, with progressively worsening symptoms over the same time frame. Pt acknowledges 15lbs subjective weight loss, shortness of breath, decreased exercise tolerance, dypsnea on exertion, dypsnea at rest. Pt seen and evaluated in ED and found to have CHF exacerbation. Acute on chronic CHF exacerbation strict I/O, daily weight, Diuresis, BREE, beta blockers, statins, Echo showed severe systolic dysfunction with EF of 10-15% monitor uop q shift, Cont Milrinone drip for total 72hrs as per cardiology he feels better less edema less shortness of breath NSVT episodes. discussed with cardiology staff. GERD (gastroesophageal reflux disease) Cont Protonix Coronary artery disease risk factory reduction, glucose control, low fat, low cholesterol diet, Aspirin, statins, Schizophrenia Supportive care, outpatient psychiatry F/U Diabetes ADA diet, insulin, accu check, hypoglycemia protocol DVT prophylaxis SCD to BLE while in bed, Pt ambulatory History Interval history: Less leg edema Less shortness of breath NSVT episodes Hospitalist Physical - Physical exam Narrative exam: Gen: Not in acute distress, Lying in bed HEENT: Normocephalic, atraumatic Neck: supple, no JVD Heart: S1 and S2 reg, no murmurs, rubs or gallop Lungs: Bilateral basal crackles, no rhonchi, no wheeze Abd: soft, non tender, non distended, normal BS, Ext: Bilateral leg edema, no clubbing, no cyanosis Neuro: Awake, alert, oriented X 3, no focal neurological signs - Constitutional Vitals: Temp Pulse Resp BP Pulse Ox 98.1 F 84 18 90/69 95 07/15/19 07:50 07/15/19 07:57 07/15/19 07:57 07/15/19 07:50 07/15/19 07:57 General appearance: Present: no acute distress Results - Labs CBC & Chem 7: 07/12/19 14:22 07/14/19 05:37 Labs: Laboratory Last Values WBC 7.1 K/mm3 (4.5-11.0) 07/12/19 14:22 RBC 5.40 M/mm3 (3.65-5.03) H 07/12/19 14:22 Hgb 16.6 gm/dl (11.8-15.2) H 07/12/19 14:22 Hct 50.4 % (35.5-45.6) H 07/12/19 14:22 MCV 93 fl (84-94) 07/12/19 14:22 MCH 31 pg (28-32) 07/12/19 14:22 MCHC 33 % (32-34) 07/12/19 14:22 RDW 15.4 % (13.2-15.2) H 07/12/19 14:22 Plt Count 260 K/mm3 (140-440) 07/12/19 14:22 Lymph % (Auto) 19.3 % (13.4-35.0) 07/12/19 14:22 [place] % (Auto) 6.5 % (0.0-7.3) 07/12/19 14:22 Eos % (Auto) 0.5 % (0.0-4.3) 07/12/19 14:22 Baso % (Auto) 0.9 % (0.0-1.8) 07/12/19 14:22 Lymph # 1.4 K/mm3 (1.2-5.4) 07/12/19 14:22 [place] # 0.5 K/mm3 (0.0-0.8) 07/12/19 14:22 Eos # 0.0 K/mm3 (0.0-0.4) 07/12/19 14:22 Baso # 0.1 K/mm3 (0.0-0.1) 07/12/19 14:22 Seg Neutrophils % 72.8 % (40.0-70.0) H 07/12/19 14:22 Seg Neutrophils # 5.1 K/mm3 (1.8-7.7) 07/12/19 14:22 PT 14.4 Sec. (12.2-14.9) 07/12/19 17:39 INR 1.15 (0.87-1.13) H 07/12/19 17:39 APTT 32.1 Sec. (24.2-36.6) 07/12/19 17:39 Sodium 137 mmol/L (137-145) 07/14/19 05:37 Potassium 4.2 mmol/L (3.6-5.0) D 07/14/19 05:37 Chloride 101.6 mmol/L (98-107) 07/14/19 05:37 Carbon Dioxide 27 mmol/L (22-30) 07/14/19 05:37 Anion Gap 13 mmol/L 07/14/19 05:37 BUN 17 mg/dL (9-20) 07/14/19 05:37 Creatinine 0.9 mg/dL (0.8-1.5) 07/14/19 05:37 Estimated GFR > 60 ml/min 07/14/19 05:37 BUN/Creatinine Ratio 19 % 07/14/19 05:37 Glucose 154 mg/dL (75-100) H 07/14/19 05:37 POC Glucose 319 (70-105) H 07/15/19 07:59 Hemoglobin A1c 14.4 % (4-6) H 07/12/19 18:07 Calcium 7.8 mg/dL (8.4-10.2) L 07/14/19 05:37 Magnesium 2.00 mg/dL (1.7-2.3) 07/14/19 05:37 Total Bilirubin 0.90 mg/dL (0.1-1.2) 07/13/19 04:57 AST 15 units/L (5-40) 07/13/19 04:57 ALT 13 units/L (7-56) 07/13/19 04:57 Alkaline Phosphatase 96 units/L (35-129) 07/13/19 04:57 Troponin T 0.034 ng/mL (0.00-0.029) H 07/12/19 17:39 NT-Pro-B Natriuret Pep 7779 pg/mL (0-900) H 07/12/19 14:22 Total Protein 4.8 g/dL (6.3-8.2) L 07/13/19 04:57 Albumin 2.6 g/dL (3.9-5) L 07/13/19 04:57 Albumin/Globulin Ratio 1.2 % 07/13/19 04:57 Triglycerides 118 mg/dL (2-149) 07/12/19 14:22 Cholesterol 134 mg/dL (50-199) 07/12/19 14:22 LDL Cholesterol Direct 46 mg/dL (50-130) L 07/12/19 14:22 HDL Cholesterol 71 mg/dL (40-59) H 07/12/19 14:22 Cholesterol/HDL Ratio 1.88 % 07/12/19 14:22 TSH 1.400 mlU/mL (0.270-4.200) 07/12/19 18:07 Free T4 1.29 ng/dL (0.76-1.46) 07/12/19 18:07 Active Medications - Current Medications Current Medications: Generic Name Dose Route Start Last Admin Trade Name Freq PRN Reason Stop Dose Admin Acetaminophen 650 mg 07/12/19 17:53 Tylenol PO Q4H PRN Pain MILD(1-3)/Fever >100.5/TERESA Albuterol 2.5 mg 07/15/19 08:00 07/15/19 07:56 Proventil IH 2.5 mg TIDRT EMILY Administration Aspirin 81 mg 07/14/19 10:00 07/14/19 10:54 Halfprin Ec PO 81 mg QDAY EMILY Administration Atorvastatin Calcium 40 mg 07/12/19 22:00 07/14/19 21:28 Lipitor PO 40 mg QHS EMILY Administration Carvedilol 3.125 mg 07/13/19 22:00 07/14/19 21:28 Coreg PO 3.125 mg BID EMILY Administration Dextrose 50 ml 07/12/19 17:58 D50w (25gm) Syringe IV PRN PRN Hypoglycemia Famotidine 20 mg 07/12/19 22:00 07/14/19 21:26 Pepcid PO 20 mg BID EMILY Administration Furosemide 40 mg 07/13/19 18:00 07/15/19 06:33 Lasix IV Not Given 0600,1800 EMILY Gabapentin 300 mg 07/12/19 22:00 07/14/19 21:29 Neurontin PO 300 mg BID EMILY Administration Haloperidol 5 mg 07/12/19 22:00 07/14/19 21:29 Haldol PO 5 mg BID EMILY Administration Milrinone Lactate/Dextrose 20 mg in 100 mls @ 4.793 mls/hr 07/13/19 15:00 07/15/19 06:47 Milrinone-D5w 20 Mg/100 Ml IV 07/16/19 14:59 0.25 mcg/kg/min TITR EMILY 4.793 mls/hr Administration 0.25 MCG/KG/MIN Ibuprofen 600 mg 07/12/19 17:56 Ibuprofen PO Q8H PRN PAIN Insulin Human Lispro 0 unit 07/12/19 22:00 07/14/19 21:30 Humalog SUB-Q 3 unit ACHS EMILY Administration Protocol Lisinopril 2.5 mg 07/14/19 10:00 07/14/19 10:57 Zestril PO Not Given QDAY EMILY Meloxicam 7.5 mg 07/12/19 22:00 07/14/19 21:28 Mobic PO 7.5 mg BID EMILY Administration Ondansetron HCl 4 mg 07/12/19 17:53 Zofran IV Q8H PRN Nausea And Vomiting Sodium Chloride 10 ml 07/12/19 22:00 07/14/19 21:30 Sodium Chloride Flush Syringe 10 Ml IV 10 ml BID EMILY Administration Sodium Chloride 10 ml 07/12/19 17:53 Sodium Chloride Flush Syringe 10 Ml IV PRN PRN LINE FLUSH Spironolactone 25 mg 07/14/19 10:00 07/14/19 10:55 Aldactone PO Not Given QDAY EMILY Trazodone HCl 100 mg 07/12/19 22:00 07/14/19 21:29 Desyrel PO 100 mg QHS EMILY Administration
[2019-07-15] MEDS: ALDACTONE PO SCH (09:13)
[2019-07-15] MEDS: HALFPRIN EC PO SCH (09:20)
[2019-07-15] MEDS: PEPCID PO SCH (09:21)
[2019-07-15] MEDS: NEURONTIN PO SCH (09:21)
[2019-07-15] MEDS: COREG PO SCH (09:21)
[2019-07-15] MEDS: MOBIC PO SCH (09:21)
[2019-07-15] MEDS: HALDOL PO SCH (09:22)
[2019-07-15] MEDS: HumaLOG SUB-Q SCH ×3 (09:22→17:46)
[2019-07-15] MEDS: ZESTRIL PO SCH (09:23)
[2019-07-15] MEDS: SODIUM CHLORIDE FLUSH SYRINGE 10 ML IV SCH (09:23)
--- NOTE | 2019-07-15 12:59 | Progress Note ---
Assessment and Plan Acute CHF exacerbation echocardiogram shows severe, 4 chamber dilated cardiomyopathy, left ventricular systolic ejection fraction 10-15%. Dilated cardiomyopathy, uncertain duration Diabetes NSVT, paroxysmal Noncompliant Recommendations: Sodium/fluid restriction. Continue medical management for systolic heart failure as tolerated. Lifevest placement before discharge. Subjective Date of service: 07/15/19 Principal diagnosis: Acute on chronic systolic HF, CAD, GERD, T2DM, Schizophrenia Interval history: Patient has no complaints. IV milrinone continues. LE edema is slowly improving. NSVT seen on telemetry overnight. Patient remained asymptomatic. Objective Vital Signs Temp Pulse Pulse Resp Resp BP BP 07/15/19 07:57 84 18 07/15/19 07:50 98.1 F 90 16 90/69 07/15/19 03:36 98.0 F 96 H 20 96/67 07/14/19 23:25 98.0 F 89 18 91/60 07/14/19 19:23 98.4 F 91 H 18 102/74 07/14/19 18:10 07/14/19 18:08 84 18 07/14/19 18:07 07/14/19 18:03 86 18 92/66 Pulse Ox 07/15/19 07:57 95 07/15/19 07:50 100 07/15/19 03:36 91 07/14/19 23:25 100 07/14/19 19:23 99 07/14/19 18:10 100 07/14/19 18:08 07/14/19 18:07 100 07/14/19 18:03 100 - Physical Examination General: No Apparent Distress HEENT: Positive: PERRL Neck: Positive: trachea midline Cardiac: Positive: Reg Rate and Rhythm Lungs: Positive: Decreased Breath Sounds Neuro: Positive: Grossly Intact Extremities: Present: +2 Edema
[2019-07-16] MEDS: HALDOL PO SCH ×3 (02:29→21:46)
[2019-07-16] MEDS: COREG PO SCH ×3 (02:29→21:46)
[2019-07-16] MEDS: DESYREL PO SCH ×2 (02:29→21:47)
[2019-07-16] MEDS: PEPCID PO SCH ×3 (02:29→21:46)
[2019-07-16] MEDS: SODIUM CHLORIDE FLUSH SYRINGE 10 ML IV SCH ×2 (02:35→09:42)
[2019-07-16] MEDS: MOBIC PO SCH ×2 (02:40→09:41)
[2019-07-16] MEDS: NEURONTIN PO SCH ×3 (02:41→21:46)
[2019-07-16] MEDS: HumaLOG SUB-Q SCH ×5 (02:45→21:45)
[2019-07-16 05:32] LABS: Hematocrit 43.2 % (35.5-45.6); Hemoglobin 14.4 gm/dl (11.8-15.2); Mean Corpuscular HGB Conc 33 % (32-34); Mean Corpuscular Volume 93 fl (84-94); Platelet Count 206 K/mm3 (140-440); Red Blood Count 4.66 M/mm3 (3.65-5.03); Red Cell Distribution Width 15.8 % (13.2-15.2)
[2019-07-16 05:50] LABS: BUN/Creatinine Ratio 23; Blood Urea Nitrogen 21 mg/dL (9-20); Calcium 7.9 mg/dL (8.4-10.2); Hemolysis Index 18
--- NOTE | 2019-07-16 05:55 | Event Note ---
Date: 07/16/19 Notified by nurse that pt has removed his life vest and threat monitoring analyst, and has disconnected his milrinone gtt. I went up to floor to speak with pt regarding hi refusal to wear life vest and tele monitor, and disconnecting his iv. At the time of my assessment pt is awake, alert and oriented x3, sitting up in bed, and watching tv. No s/s of distress noted. I asked the pt if there was anything bothering, if there is anything I can offer him, and does he want to continue to receive care. Pt stated that he was fine, wants to continue receiv ing care, and just doesn't feel like wearing any monitoring devices or being connected to IV at this time. Furthermore, he's called his sister and she is on her way to the hospital to turn off the life vest, so it can stop beeping. I attempted to counselor aid pt regarding the importance of wearing the life vest and tele monitor. He confirm acknowledgement, and reiterated that he wasn't going to wear anything. Pt then asked me to leave his room and close the door.
[2019-07-16] MEDS: LASIX IV SCH ×2 (06:00→17:49)
[2019-07-16] MEDS: PROVENTIL IH SCH ×3 (07:43→20:34)
[2019-07-16] MEDS: ALDACTONE PO SCH (09:40)
[2019-07-16] MEDS: HALFPRIN EC PO SCH (09:40)
[2019-07-16] MEDS: ZESTRIL PO SCH (09:41)
--- NOTE | 2019-07-16 10:07 | Progress Note ---
Assessment and Plan Acute systolic heart failure - cold and wet echocardiogram shows severe, 4 chamber dilated cardiomyopathy, left ventricular systolic ejection fraction 10-15%. Ineffective diuresis Dilated cardiomyopathy, unknown etiology Diabetes NSVT, paroxysmal Patient now has lifevest Noncompliant Recommendations: Sodium/fluid restriction. Continue IV milrinone Add metolazone Replace potassium Accurate Is and Os If symptoms are refractory, consider R/LHC early next week Daily BMP Subjective Date of service: 07/16/19 Principal diagnosis: Acute on chronic systolic HF, CAD, GERD, T2DM, Schizophrenia Interval history: Patient lying in bed, in no distress Objective Vital Signs Temp Pulse Pulse Pulse Resp Resp Resp 07/16/19 09:41 95 H 07/16/19 09:40 95 H 07/16/19 09:39 95 H 07/16/19 08:00 95 H 18 07/16/19 07:50 98.4 F 18 07/16/19 04:10 98.3 F 93 H 18 07/16/19 02:40 20 07/15/19 23:38 98.9 F 91 H 20 07/15/19 20:25 92 H 88 18 18 07/15/19 19:13 98.4 F 94 H 12 07/15/19 16:53 98.1 F 92 H 14 07/15/19 13:46 98.1 F 87 14 BP Pulse Ox 07/16/19 09:41 107/82 07/16/19 09:40 107/82 07/16/19 09:39 107/82 07/16/19 08:00 07/16/19 07:50 107/82 07/16/19 04:10 111/80 100 07/16/19 02:40 07/15/19 23:38 108/71 97 07/15/19 20:25 07/15/19 19:13 93/59 100 07/15/19 16:53 99/73 100 07/15/19 13:46 87/64 100 - Physical Examination General: No Apparent Distress HEENT: Positive: PERRL Neck: Positive: trachea midline, JVD/HJR Cardiac: Positive: Reg Rate and Rhythm Lungs: Positive: Normal Exam Neuro: Positive: Grossly Intact Abdomen: Positive: Soft Extremities: Present: +2 Edema - Labs and Meds CBC 07/16/19 Range/Units 04:24 WBC 5.8 (4.5-11.0) K/mm3 RBC 4.66 (3.65-5.03) M/mm3 Hgb 14.4 (11.8-15.2) gm/dl Hct 43.2 (35.5-45.6) % Plt Count 206 (140-440) K/mm3 Comprehensive Metabolic Panel 07/16/19 Range/Units 04:24 Sodium 136 L (137-145) mmol/L Potassium 4.2 (3.6-5.0) mmol/L Chloride 100.3 (98-107) mmol/L Carbon Dioxide 26 (22-30) mmol/L BUN 21 H (9-20) mg/dL Creatinine 0.9 (0.8-1.5) mg/dL Glucose 306 H (75-100) mg/dL Calcium 7.9 L (8.4-10.2) mg/dL
[2019-07-16] MEDS: ZAROXOLYN PO SCH (12:24)
--- NOTE | 2019-07-16 13:26 | Progress Note ---
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 Pt stated that he has experienced swelling to his legs, scrotum, and penis over the past 1 week, with progressively worsening symptoms over the same time frame. Pt acknowledges 15lbs subjective weight loss, shortness of breath, decreased exercise tolerance, dypsnea on exertion, dypsnea at rest. Pt seen and evaluated in ED and found to have CHF exacerbation. Acute on chronic CHF exacerbation strict I/O, daily weight, Diuresis, BREE, beta blockers, statins, Echo showed severe systolic dysfunction with EF of 10-15% monitor uop q shift, Cont Milrinone he feels better Still leg edema less shortness of breath NSVT episodes. discussed with cardiology staff. Life vest fitted Poss cardiac cath on Friday GERD (gastroesophageal reflux disease) Cont Protonix Coronary artery disease risk factory reduction, glucose control, low fat, low cholesterol diet, Aspirin, statins, Schizophrenia Supportive care, outpatient psychiatry F/U Diabetes ADA diet, insulin, accu check, hypoglycemia protocol DVT prophylaxis SCD to BLE while in bed, Pt ambulatory History Interval history: Still has bilateral leg edema Less shortness of breath Life vest fitted Hospitalist Physical - Physical exam Narrative exam: Gen: Not in acute distress, Lying in bed HEENT: Normocephalic, atraumatic Neck: supple, no JVD Heart: S1 and S2 reg, no murmurs, rubs or gallop Lungs: Bilateral basal crackles, no rhonchi, no wheeze Abd: soft, non tender, non distended, normal BS, Ext: Bilateral leg edema, no clubbing, no cyanosis Neuro: Awake, alert, oriented X 3, no focal neurological signs - Constitutional Vitals: Temp Pulse Resp BP Pulse Ox 98.4 F 95 H 18 107/82 100 07/16/19 07:50 07/16/19 09:41 07/16/19 08:00 07/16/19 09:41 07/16/19 04:10 General appearance: Present: no acute distress Results - Labs CBC & Chem 7: 07/16/19 04:24 07/16/19 04:24 Labs: Laboratory Last Values WBC 5.8 K/mm3 (4.5-11.0) 07/16/19 04:24 RBC 4.66 M/mm3 (3.65-5.03) 07/16/19 04:24 Hgb 14.4 gm/dl (11.8-15.2) 07/16/19 04:24 Hct 43.2 % (35.5-45.6) 07/16/19 04:24 MCV 93 fl (84-94) 07/16/19 04:24 MCH 31 pg (28-32) 07/16/19 04:24 MCHC 33 % (32-34) 07/16/19 04:24 RDW 15.8 % (13.2-15.2) H 07/16/19 04:24 Plt Count 206 K/mm3 (140-440) 07/16/19 04:24 Lymph % (Auto) 19.3 % (13.4-35.0) 07/12/19 14:22 [place] % (Auto) 6.5 % (0.0-7.3) 07/12/19 14:22 Eos % (Auto) 0.5 % (0.0-4.3) 07/12/19 14:22 Baso % (Auto) 0.9 % (0.0-1.8) 07/12/19 14:22 Lymph # 1.4 K/mm3 (1.2-5.4) 07/12/19 14:22 [place] # 0.5 K/mm3 (0.0-0.8) 07/12/19 14:22 Eos # 0.0 K/mm3 (0.0-0.4) 07/12/19 14:22 Baso # 0.1 K/mm3 (0.0-0.1) 07/12/19 14:22 Seg Neutrophils % 72.8 % (40.0-70.0) H 07/12/19 14:22 Seg Neutrophils # 5.1 K/mm3 (1.8-7.7) 07/12/19 14:22 PT 14.4 Sec. (12.2-14.9) 07/12/19 17:39 INR 1.15 (0.87-1.13) H 07/12/19 17:39 APTT 32.1 Sec. (24.2-36.6) 07/12/19 17:39 Sodium 136 mmol/L (137-145) L 07/16/19 04:24 Potassium 4.2 mmol/L (3.6-5.0) 07/16/19 04:24 Chloride 100.3 mmol/L (98-107) 07/16/19 04:24 Carbon Dioxide 26 mmol/L (22-30) 07/16/19 04:24 Anion Gap 14 mmol/L 07/16/19 04:24 BUN 21 mg/dL (9-20) H 07/16/19 04:24 Creatinine 0.9 mg/dL (0.8-1.5) 07/16/19 04:24 Estimated GFR > 60 ml/min 07/16/19 04:24 BUN/Creatinine Ratio 23 % 07/16/19 04:24 Glucose 306 mg/dL (75-100) H 07/16/19 04:24 POC Glucose 291 (70-105) H 07/16/19 12:00 Hemoglobin A1c 14.4 % (4-6) H 07/12/19 18:07 Calcium 7.9 mg/dL (8.4-10.2) L 07/16/19 04:24 Magnesium 2.00 mg/dL (1.7-2.3) 07/14/19 05:37 Total Bilirubin 0.90 mg/dL (0.1-1.2) 07/13/19 04:57 AST 15 units/L (5-40) 07/13/19 04:57 ALT 13 units/L (7-56) 07/13/19 04:57 Alkaline Phosphatase 96 units/L (35-129) 07/13/19 04:57 Troponin T 0.034 ng/mL (0.00-0.029) H 07/12/19 17:39 NT-Pro-B Natriuret Pep 7779 pg/mL (0-900) H 07/12/19 14:22 Total Protein 4.8 g/dL (6.3-8.2) L 07/13/19 04:57 Albumin 2.6 g/dL (3.9-5) L 07/13/19 04:57 Albumin/Globulin Ratio 1.2 % 07/13/19 04:57 Triglycerides 118 mg/dL (2-149) 07/12/19 14:22 Cholesterol 134 mg/dL (50-199) 07/12/19 14:22 LDL Cholesterol Direct 46 mg/dL (50-130) L 07/12/19 14:22 HDL Cholesterol 71 mg/dL (40-59) H 07/12/19 14:22 Cholesterol/HDL Ratio 1.88 % 07/12/19 14:22 TSH 1.400 mlU/mL (0.270-4.200) 07/12/19 18:07 Free T4 1.29 ng/dL (0.76-1.46) 07/12/19 18:07 Active Medications - Current Medications Current Medications: Generic Name Dose Route Start Last Admin Trade Name Freq PRN Reason Stop Dose Admin Acetaminophen 650 mg 07/12/19 17:53 Tylenol PO Q4H PRN Pain MILD(1-3)/Fever >100.5/TERESA Albuterol 2.5 mg 07/15/19 08:00 07/16/19 07:43 Proventil IH 2.5 mg TIDRT EMILY Administration Aspirin 81 mg 07/14/19 10:00 07/16/19 09:40 Halfprin Ec PO 81 mg QDAY EMILY Administration Atorvastatin Calcium 40 mg 07/12/19 22:00 07/16/19 02:29 Lipitor PO 40 mg QHS EMILY Administration Carvedilol 3.125 mg 07/13/19 22:00 07/16/19 09:39 Coreg PO 3.125 mg BID EMILY Administration Dextrose 50 ml 07/12/19 17:58 D50w (25gm) Syringe IV PRN PRN Hypoglycemia Famotidine 20 mg 07/12/19 22:00 07/16/19 09:39 Pepcid PO 20 mg BID EMLIY Administration Furosemide 40 mg 07/13/19 18:00 07/15/19 17:46 Lasix IV 40 mg 0600,1800 EMILY Administration Gabapentin 300 mg 07/12/19 22:00 07/16/19 09:39 Neurontin PO 300 mg BID EMILY Administration Haloperidol 5 mg 07/12/19 22:00 07/16/19 09:40 Haldol PO 5 mg BID EMILY Administration Milrinone Lactate/Dextrose 20 mg in 100 mls @ 4.793 mls/hr 07/13/19 15:00 07/15/19 06:47 Milrinone-D5w 20 Mg/100 Ml IV 07/16/19 14:59 0.25 mcg/kg/min TITR EMILY 4.793 mls/hr Administration 0.25 MCG/KG/MIN Milrinone Lactate/Dextrose 20 mg in 100 mls @ 4.793 mls/hr 07/16/19 15:00 Milrinone-D5w 20 Mg/100 Ml IV TITR EMILY 0.25 MCG/KG/MIN Insulin Human Isoph/Insulin Regular 8 unit 07/16/19 17:00 Humulin 70/30 SUB-Q BIDDIAB EMILY Insulin Human Lispro 0 unit 07/12/19 22:00 07/16/19 12:47 Humalog SUB-Q 4 unit ACHS EMILY Administration Protocol Lisinopril 2.5 mg 07/14/19 10:00 07/16/19 09:41 Zestril PO 2.5 mg QDAY EMILY Administration Metolazone 2.5 mg 07/16/19 11:00 07/16/19 12:24 Zaroxolyn PO 2.5 mg QDAY EMILY Administration Ondansetron HCl 4 mg 07/12/19 17:53 Zofran IV Q8H PRN Nausea And Vomiting Sodium Chloride 10 ml 07/12/19 22:00 07/16/19 09:42 Sodium Chloride Flush Syringe 10 Ml IV 10 ml BID EMILY Administration Sodium Chloride 10 ml 07/12/19 17:53 Sodium Chloride Flush Syringe 10 Ml IV PRN PRN LINE FLUSH Spironolactone 25 mg 07/14/19 10:00 07/16/19 09:40 Aldactone PO 25 mg QDAY EMILY Administration Trazodone HCl 100 mg 07/12/19 22:00 07/16/19 02:29 Desyrel PO 100 mg QHS EMILY Administration
[2019-07-16] MEDS: MILRINONE-D5W 20 MG/100 ML 20 MG/100 ML BAG IV SCH (15:56)
[2019-07-17 00:50] LABS: BUN/Creatinine Ratio 22; Blood Urea Nitrogen 20 mg/dL (9-20); Calcium 8.4 mg/dL (8.4-10.2); Hemolysis Index 21
[2019-07-17] MEDS: SODIUM CHLORIDE FLUSH SYRINGE 10 ML IV SCH ×3 (03:15→21:30)
[2019-07-17] MEDS: LASIX IV SCH ×2 (06:46→19:32)
[2019-07-17] MEDS: HumaLOG SUB-Q SCH ×4 (09:00→21:50)
--- NOTE | 2019-07-17 09:15 | Progress Note ---
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 Pt stated that he has experienced swelling to his legs, scrotum, and penis over the past 1 week, with progressively worsening symptoms over the same time frame. Pt acknowledges 15lbs subjective weight loss, shortness of breath, decreased exercise tolerance, dypsnea on exertion, dypsnea at rest. Pt seen and evaluated in ED and found to have CHF exacerbation. Acute on chronic CHF exacerbation strict I/O, daily weight, Diuresis, BREE, beta blockers, statins, Echo showed severe systolic dysfunction with EF of 10-15% Strict fluid I/O Cont Milrinone he feels better Still leg edema less shortness of breath NSVT episodes. discussed with cardiology staff. Life vest fitted For cardiac cath on Friday GERD (gastroesophageal reflux disease) Cont Protonix Coronary artery disease risk factory reduction, glucose control, low fat, low cholesterol diet, Aspirin, statins, Schizophrenia Supportive care, outpatient psychiatry F/U Diabetes ADA diet, insulin, accu check, hypoglycemia protocol DVT prophylaxis SCD to BLE while in bed, Pt ambulatory History Interval history: Still has bilateral leg edema Less shortness of breath Hospitalist Physical - Physical exam Narrative exam: Gen: Not in acute distress, Lying in bed HEENT: Normocephalic, atraumatic Neck: supple, no JVD Heart: S1 and S2 reg, no murmurs, rubs or gallop Lungs: Bilateral basal crackles, no rhonchi, no wheeze Abd: soft, non tender, non distended, normal BS, Ext: Bilateral leg edema, no clubbing, no cyanosis Neuro: Awake, alert, oriented X 3, no focal neurological signs - Constitutional Vitals: Temp Pulse Resp BP Pulse Ox 97.7 F 76 16 92/64 98 07/17/19 04:03 07/17/19 04:03 07/17/19 04:03 07/17/19 04:03 07/17/19 04:03 General appearance: Present: no acute distress Results - Labs CBC & Chem 7: 07/16/19 04:24 07/17/19 00:09 Labs: Laboratory Last Values WBC 5.8 K/mm3 (4.5-11.0) 07/16/19 04:24 RBC 4.66 M/mm3 (3.65-5.03) 07/16/19 04:24 Hgb 14.4 gm/dl (11.8-15.2) 07/16/19 04:24 Hct 43.2 % (35.5-45.6) 07/16/19 04:24 MCV 93 fl (84-94) 07/16/19 04:24 MCH 31 pg (28-32) 07/16/19 04:24 MCHC 33 % (32-34) 07/16/19 04:24 RDW 15.8 % (13.2-15.2) H 07/16/19 04:24 Plt Count 206 K/mm3 (140-440) 07/16/19 04:24 Lymph % (Auto) 19.3 % (13.4-35.0) 07/12/19 14:22 [place] % (Auto) 6.5 % (0.0-7.3) 07/12/19 14:22 Eos % (Auto) 0.5 % (0.0-4.3) 07/12/19 14:22 Baso % (Auto) 0.9 % (0.0-1.8) 07/12/19 14:22 Lymph # 1.4 K/mm3 (1.2-5.4) 07/12/19 14:22 [place] # 0.5 K/mm3 (0.0-0.8) 07/12/19 14:22 Eos # 0.0 K/mm3 (0.0-0.4) 07/12/19 14:22 Baso # 0.1 K/mm3 (0.0-0.1) 07/12/19 14:22 Seg Neutrophils % 72.8 % (40.0-70.0) H 07/12/19 14:22 Seg Neutrophils # 5.1 K/mm3 (1.8-7.7) 07/12/19 14:22 PT 14.4 Sec. (12.2-14.9) 07/12/19 17:39 INR 1.15 (0.87-1.13) H 07/12/19 17:39 APTT 32.1 Sec. (24.2-36.6) 07/12/19 17:39 Sodium 138 mmol/L (137-145) 07/17/19 00:09 Potassium 4.1 mmol/L (3.6-5.0) 07/17/19 00:09 Chloride 98.6 mmol/L (98-107) 07/17/19 00:09 Carbon Dioxide 31 mmol/L (22-30) H 07/17/19 00:09 Anion Gap 13 mmol/L 07/17/19 00:09 BUN 20 mg/dL (9-20) 07/17/19 00:09 Creatinine 0.9 mg/dL (0.8-1.5) 07/17/19 00:09 Estimated GFR > 60 ml/min 07/17/19 00:09 BUN/Creatinine Ratio 22 % 07/17/19 00:09 Glucose 209 mg/dL (75-100) H 07/17/19 00:09 POC Glucose 72 (70-105) 07/17/19 07:21 Hemoglobin A1c 14.4 % (4-6) H 07/12/19 18:07 Calcium 8.4 mg/dL (8.4-10.2) 07/17/19 00:09 Magnesium 2.00 mg/dL (1.7-2.3) 07/14/19 05:37 Total Bilirubin 0.90 mg/dL (0.1-1.2) 07/13/19 04:57 AST 15 units/L (5-40) 07/13/19 04:57 ALT 13 units/L (7-56) 07/13/19 04:57 Alkaline Phosphatase 96 units/L (35-129) 07/13/19 04:57 Troponin T 0.034 ng/mL (0.00-0.029) H 07/12/19 17:39 NT-Pro-B Natriuret Pep 7779 pg/mL (0-900) H 07/12/19 14:22 Total Protein 4.8 g/dL (6.3-8.2) L 07/13/19 04:57 Albumin 2.6 g/dL (3.9-5) L 07/13/19 04:57 Albumin/Globulin Ratio 1.2 % 07/13/19 04:57 Triglycerides 118 mg/dL (2-149) 07/12/19 14:22 Cholesterol 134 mg/dL (50-199) 07/12/19 14:22 LDL Cholesterol Direct 46 mg/dL (50-130) L 07/12/19 14:22 HDL Cholesterol 71 mg/dL (40-59) H 07/12/19 14:22 Cholesterol/HDL Ratio 1.88 % 07/12/19 14:22 TSH 1.400 mlU/mL (0.270-4.200) 07/12/19 18:07 Free T4 1.29 ng/dL (0.76-1.46) 07/12/19 18:07 Active Medications - Current Medications Current Medications: Generic Name Dose Route Start Last Admin Trade Name Freq PRN Reason Stop Dose Admin Acetaminophen 650 mg 07/12/19 17:53 Tylenol PO Q4H PRN Pain MILD(1-3)/Fever >100.5/TERESA Albuterol 2.5 mg 07/15/19 08:00 07/16/19 20:34 Proventil IH 2.5 mg TIDRT EMILY Administration Aspirin 81 mg 07/14/19 10:00 07/16/19 09:40 Halfprin Ec PO 81 mg QDAY EMILY Administration Atorvastatin Calcium 40 mg 07/12/19 22:00 07/16/19 21:46 Lipitor PO 40 mg QHS EMILY Administration Carvedilol 3.125 mg 07/13/19 22:00 07/16/19 21:46 Coreg PO 3.125 mg BID EMILY Administration Dextrose 50 ml 07/12/19 17:58 D50w (25gm) Syringe IV PRN PRN Hypoglycemia Famotidine 20 mg 07/12/19 22:00 07/16/19 21:46 Pepcid PO 20 mg BID EMILY Administration Furosemide 40 mg 07/13/19 18:00 07/17/19 06:46 Lasix IV 40 mg 0600,1800 EMILY Administration Gabapentin 300 mg 07/12/19 22:00 07/16/19 21:46 Neurontin PO 300 mg BID EMILY Administration Haloperidol 5 mg 07/12/19 22:00 07/16/19 21:46 Haldol PO 5 mg BID EMILY Administration Milrinone Lactate/Dextrose 20 mg in 100 mls @ 4.793 mls/hr 07/16/19 15:00 07/16/19 15:56 Milrinone-D5w 20 Mg/100 Ml IV 0.25 mcg/kg/min TITR EMILY 4.793 mls/hr Administration 0.25 MCG/KG/MIN Insulin Human Isoph/Insulin Regular 12 unit 07/16/19 17:05 Humulin 70/30 SUB-Q BIDDIAB EMILY Insulin Human Lispro 0 unit 07/12/19 22:00 07/16/19 21:45 Humalog SUB-Q 6 unit ACHS EMILY Administration Protocol Lisinopril 2.5 mg 07/14/19 10:00 07/16/19 09:41 Zestril PO 2.5 mg QDAY EMILY Administration Metolazone 2.5 mg 07/16/19 11:00 07/16/19 12:24 Zaroxolyn PO 2.5 mg QDAY EMILY Administration Ondansetron HCl 4 mg 07/12/19 17:53 Zofran IV Q8H PRN Nausea And Vomiting Sodium Chloride 10 ml 07/12/19 22:00 07/17/19 03:15 Sodium Chloride Flush Syringe 10 Ml IV Not Given BID EMILY Sodium Chloride 10 ml 07/12/19 17:53 Sodium Chloride Flush Syringe 10 Ml IV PRN PRN LINE FLUSH Spironolactone 25 mg 07/14/19 10:00 07/16/19 09:40 Aldactone PO 25 mg QDAY EMILY Administration Trazodone HCl 100 mg 07/12/19 22:00 07/16/19 21:47 Desyrel PO 100 mg QHS EMILY Administration
[2019-07-17] MEDS: ZAROXOLYN PO SCH (09:34)
[2019-07-17] MEDS: COREG PO SCH ×2 (09:34→21:31)
[2019-07-17] MEDS: PEPCID PO SCH ×2 (09:35→21:30)
[2019-07-17] MEDS: HALDOL PO SCH ×2 (09:35→21:31)
[2019-07-17] MEDS: HALFPRIN EC PO SCH (09:35)
[2019-07-17] MEDS: NEURONTIN PO SCH ×2 (09:35→21:31)
[2019-07-17] MEDS: ZESTRIL PO SCH (10:00)
[2019-07-17] MEDS: ALDACTONE PO SCH (10:01)
[2019-07-17] MEDS: PROVENTIL IH SCH ×3 (10:31→20:24)
--- NOTE | 2019-07-17 10:45 | Progress Note ---
Assessment and Plan Acute systolic heart failure - cold and wet echocardiogram shows severe, 4 chamber dilated cardiomyopathy, left ventricular systolic ejection fraction 10-15%. Ineffective diuresis Dilated cardiomyopathy, unknown etiology Diabetes NSVT, paroxysmal Patient now has lifevest Noncompliant Recommendations: Sodium/fluid restriction. Continue IV milrinone Add metolazone Replace potassium Accurate Is and Os If symptoms are refractory, consider R/LHC early next week Daily BMP Subjective Date of service: 07/17/19 Principal diagnosis: Acute on chronic systolic HF, CAD, GERD, T2DM, Schizophrenia Interval history: NO events overnight Objective Vital Signs Temp Pulse Pulse Pulse Resp Resp Resp 07/17/19 10:01 62 07/17/19 10:00 62 07/17/19 09:38 18 07/17/19 09:34 62 07/17/19 07:14 98.0 F 18 07/17/19 04:03 97.7 F 76 16 07/16/19 23:24 98.6 F 83 16 07/16/19 21:46 92 H 07/16/19 20:35 88 91 H 16 16 07/16/19 19:29 97.9 F 92 H 18 07/16/19 17:47 98.2 F 18 07/16/19 12:23 89 20 BP Pulse Ox 07/17/19 10:01 91/60 07/17/19 10:00 91/62 07/17/19 09:38 91/62 07/17/19 09:34 91/62 07/17/19 07:14 90/65 07/17/19 04:03 92/64 98 07/16/19 23:24 102/71 100 07/16/19 21:46 114/78 07/16/19 20:35 07/16/19 19:29 114/78 97 07/16/19 17:47 98/72 07/16/19 12:23 110/83 99 - Physical Examination Narrative exam: General appearance: no acute distress HEENT: Normocephalic Neck: Carotids 2+ Cardiac: S1 and S2 heard no murmur noted Lungs: normal breath sounds Abd: soft Neuro: Grossly Intact Extremities: 2 + edema noted General: No Apparent Distress HEENT: Positive: PERRL Neck: Positive: trachea midline, JVD/HJR Neuro: Positive: Grossly Intact Abdomen: Positive: Soft Extremities: Present: +2 Edema - Labs and Meds Comprehensive Metabolic Panel 07/17/19 Range/Units 00:09 Sodium 138 (137-145) mmol/L Potassium 4.1 (3.6-5.0) mmol/L Chloride 98.6 (98-107) mmol/L Carbon Dioxide 31 H (22-30) mmol/L BUN 20 (9-20) mg/dL Creatinine 0.9 (0.8-1.5) mg/dL Glucose 209 H (75-100) mg/dL Calcium 8.4 (8.4-10.2) mg/dL
[2019-07-17] MEDS: MILRINONE-D5W 20 MG/100 ML 20 MG/100 ML BAG IV SCH (14:07)
[2019-07-17] MEDS: LOVENOX SUB-Q SCH (21:31)
[2019-07-17] MEDS: DESYREL PO SCH (21:31)
[2019-07-18] MEDS: LASIX IV SCH ×2 (05:49→18:13)
[2019-07-18] MEDS: HumaLOG SUB-Q SCH ×5 (08:00→22:13)
--- NOTE | 2019-07-18 09:19 | Vascular Lab Report ---
DUPLEX DOPPLER LOWER EXTREMITY VEINS, BILATERAL INDICATION / CLINICAL INFORMATION: bilateral leg swelling. TECHNIQUE: Duplex doppler imaging was performed through the veins of both lower extremities using venous dandre kierra and other maneuvers. COMPARISON: None available. FINDINGS: RIGHT COMMON FEMORAL VEIN: Negative. RIGHT FEMORAL VEIN: Negative. RIGHT POPLITEAL VEIN: Negative. RIGHT CALF VEINS: Negative. LEFT COMMON FEMORAL VEIN: Negative. LEFT FEMORAL VEIN: Negative. LEFT POPLITEAL VEIN: Negative. LEFT CALF VEINS: Negative. ADDITIONAL FINDINGS: None. IMPRESSION: 1. No sonographic evidence for DVT in either lower extremity. Signer Name: Bill Pyle MD Signed: 07/18/2019 9:15 AM Workstation Name: [id number]
--- NOTE | 2019-07-18 09:29 | Progress Note ---
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 Pt stated that he has experienced swelling to his legs, scrotum, and penis over the past 1 week, with progressively worsening symptoms over the same time frame. Pt acknowledges 15lbs subjective weight loss, shortness of breath, decreased exercise tolerance, dypsnea on exertion, dypsnea at rest. Pt seen and evaluated in ED and found to have CHF exacerbation. Acute on chronic CHF exacerbation strict I/O, daily weight, Diuresis, BREE, beta blockers, statins, Echo showed severe systolic dysfunction with EF of 10-15% Strict fluid I/O Cont Milrinone he feels better Still leg edema less shortness of breath NSVT episodes. discussed with cardiology staff. 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, glucose control, low fat, low cholesterol diet, Aspirin, statins, Schizophrenia Supportive care, outpatient psychiatry F/U Diabetes ADA diet, insulin, accu check, hypoglycemia protocol DVT prophylaxis SCD to BLE while in bed, Pt ambulatory Lovenox History Interval history: Still has bilateral leg edema Less shortness of breath no chest pain Life vest fitted, on Hospitalist Physical - Physical exam Narrative exam: Gen: Not in acute distress, Lying in bed HEENT: Normocephalic, atraumatic Neck: supple, no JVD Heart: S1 and S2 reg, no murmurs, rubs or gallop Lungs: Bilateral basal crackles, no rhonchi, no wheeze Abd: soft, non tender, non distended, normal BS, Ext: Bilateral leg edema, no clubbing, no cyanosis Neuro: Awake, alert, oriented X 3, no focal neurological signs - Constitutional Vitals: Temp Pulse Resp BP Pulse Ox 98.1 F 82 18 98/72 97 07/18/19 08:25 07/18/19 08:25 07/18/19 08:25 07/18/19 08:25 07/18/19 08:25 General appearance: Present: no acute distress Results - Labs CBC & Chem 7: 07/16/19 04:24 07/17/19 00:09 Labs: Laboratory Last Values WBC 5.8 K/mm3 (4.5-11.0) 07/16/19 04:24 RBC 4.66 M/mm3 (3.65-5.03) 07/16/19 04:24 Hgb 14.4 gm/dl (11.8-15.2) 07/16/19 04:24 Hct 43.2 % (35.5-45.6) 07/16/19 04:24 MCV 93 fl (84-94) 07/16/19 04:24 MCH 31 pg (28-32) 07/16/19 04:24 MCHC 33 % (32-34) 07/16/19 04:24 RDW 15.8 % (13.2-15.2) H 07/16/19 04:24 Plt Count 206 K/mm3 (140-440) 07/16/19 04:24 Lymph % (Auto) 19.3 % (13.4-35.0) 07/12/19 14:22 [place] % (Auto) 6.5 % (0.0-7.3) 07/12/19 14:22 Eos % (Auto) 0.5 % (0.0-4.3) 07/12/19 14:22 Baso % (Auto) 0.9 % (0.0-1.8) 07/12/19 14:22 Lymph # 1.4 K/mm3 (1.2-5.4) 07/12/19 14:22 [place] # 0.5 K/mm3 (0.0-0.8) 07/12/19 14:22 Eos # 0.0 K/mm3 (0.0-0.4) 07/12/19 14:22 Baso # 0.1 K/mm3 (0.0-0.1) 07/12/19 14:22 Seg Neutrophils % 72.8 % (40.0-70.0) H 07/12/19 14:22 Seg Neutrophils # 5.1 K/mm3 (1.8-7.7) 07/12/19 14:22 PT 14.4 Sec. (12.2-14.9) 07/12/19 17:39 INR 1.15 (0.87-1.13) H 07/12/19 17:39 APTT 32.1 Sec. (24.2-36.6) 07/12/19 17:39 Sodium 138 mmol/L (137-145) 07/17/19 00:09 Potassium 4.1 mmol/L (3.6-5.0) 07/17/19 00:09 Chloride 98.6 mmol/L (98-107) 07/17/19 00:09 Carbon Dioxide 31 mmol/L (22-30) H 07/17/19 00:09 Anion Gap 13 mmol/L 07/17/19 00:09 BUN 20 mg/dL (9-20) 07/17/19 00:09 Creatinine 0.9 mg/dL (0.8-1.5) 07/17/19 00:09 Estimated GFR > 60 ml/min 07/17/19 00:09 BUN/Creatinine Ratio 22 % 07/17/19 00:09 Glucose 209 mg/dL (75-100) H 07/17/19 00:09 POC Glucose 151 (70-105) H 07/18/19 08:32 Hemoglobin A1c 14.4 % (4-6) H 07/12/19 18:07 Calcium 8.4 mg/dL (8.4-10.2) 07/17/19 00:09 Magnesium 2.00 mg/dL (1.7-2.3) 07/14/19 05:37 Total Bilirubin 0.90 mg/dL (0.1-1.2) 07/13/19 04:57 AST 15 units/L (5-40) 07/13/19 04:57 ALT 13 units/L (7-56) 07/13/19 04:57 Alkaline Phosphatase 96 units/L (35-129) 07/13/19 04:57 Troponin T 0.034 ng/mL (0.00-0.029) H 07/12/19 17:39 NT-Pro-B Natriuret Pep 7779 pg/mL (0-900) H 07/12/19 14:22 Total Protein 4.8 g/dL (6.3-8.2) L 07/13/19 04:57 Albumin 2.6 g/dL (3.9-5) L 07/13/19 04:57 Albumin/Globulin Ratio 1.2 % 07/13/19 04:57 Triglycerides 118 mg/dL (2-149) 07/12/19 14:22 Cholesterol 134 mg/dL (50-199) 07/12/19 14:22 LDL Cholesterol Direct 46 mg/dL (50-130) L 07/12/19 14:22 HDL Cholesterol 71 mg/dL (40-59) H 07/12/19 14:22 Cholesterol/HDL Ratio 1.88 % 07/12/19 14:22 TSH 1.400 mlU/mL (0.270-4.200) 07/12/19 18:07 Free T4 1.29 ng/dL (0.76-1.46) 07/12/19 18:07 Active Medications - Current Medications Current Medications: Generic Name Dose Route Start Last Admin Trade Name Freq PRN Reason Stop Dose Admin Acetaminophen 650 mg 07/12/19 17:53 Tylenol PO Q4H PRN Pain MILD(1-3)/Fever >100.5/TERESA Albuterol 2.5 mg 07/15/19 08:00 07/17/19 20:24 Proventil IH 2.5 mg TIDRT EMILY Administration Aspirin 81 mg 07/14/19 10:00 07/17/19 09:35 Halfprin Ec PO 81 mg QDAY EMILY Administration Atorvastatin Calcium 40 mg 07/12/19 22:00 07/17/19 21:31 Lipitor PO 40 mg QHS EMILY Administration Carvedilol 3.125 mg 07/13/19 22:00 07/17/19 21:31 Coreg PO 3.125 mg BID EMILY Administration Dextrose 50 ml 07/12/19 17:58 D50w (25gm) Syringe IV PRN PRN Hypoglycemia Enoxaparin Sodium 40 mg 07/17/19 22:00 07/17/19 21:31 Lovenox SUB-Q 40 mg QDAY@2200 EMILY Administration Famotidine 20 mg 07/12/19 22:00 07/17/19 21:30 Pepcid PO 20 mg BID EMILY Administration Furosemide 40 mg 07/13/19 18:00 07/18/19 05:49 Lasix IV Not Given 0600,1800 EMILY Gabapentin 300 mg 07/12/19 22:00 07/17/19 21:31 Neurontin PO 300 mg BID EMILY Administration Haloperidol 5 mg 07/12/19 22:00 07/17/19 21:31 Haldol PO 5 mg BID EMILY Administration Milrinone Lactate/Dextrose 20 mg in 100 mls @ 4.793 mls/hr 07/16/19 15:00 07/17/19 14:07 Milrinone-D5w 20 Mg/100 Ml IV 0.25 mcg/kg/min TITR EMILY 4.793 mls/hr Administration 0.25 MCG/KG/MIN Insulin Human Isoph/Insulin Regular 12 unit 07/16/19 17:05 07/17/19 18:11 Humulin 70/30 SUB-Q 12 unit BIDDIAB EMILY Administration Insulin Human Lispro 0 unit 07/12/19 22:00 07/17/19 21:50 Humalog SUB-Q 4 unit ACHS EMILY Administration Protocol Lisinopril 2.5 mg 07/14/19 10:00 07/17/19 10:00 Zestril PO Not Given QDAY EMILY Metolazone 2.5 mg 07/16/19 11:00 07/17/19 09:34 Zaroxolyn PO 2.5 mg QDAY EMILY Administration Ondansetron HCl 4 mg 07/12/19 17:53 Zofran IV Q8H PRN Nausea And Vomiting Sodium Chloride 10 ml 07/12/19 22:00 07/17/19 21:30 Sodium Chloride Flush Syringe 10 Ml IV 10 ml BID EMILY Administration Sodium Chloride 10 ml 07/12/19 17:53 Sodium Chloride Flush Syringe 10 Ml IV PRN PRN LINE FLUSH Spironolactone 25 mg 07/14/19 10:00 07/17/19 10:01 Aldactone PO 12.5 mg QDAY EMILY Administration Trazodone HCl 100 mg 07/12/19 22:00 07/17/19 21:31 Desyrel PO 100 mg QHS EMILY Administration
[2019-07-18] MEDS: PROVENTIL IH SCH ×3 (09:37→20:06)
--- NOTE | 2019-07-18 11:26 | Progress Note ---
Assessment and Plan Acute systolic heart failure - cold and wet echocardiogram shows severe, 4 chamber dilated cardiomyopathy, left ventricular systolic ejection fraction 10-15%. Ineffective diuresis Dilated cardiomyopathy, unknown etiology Diabetes NSVT, paroxysmal Patient now has lifevest Noncompliant Recommendations: Sodium/fluid restriction. Continue IV milrinone Add metolazone Replace potassium Accurate Is and Os If symptoms are refractory, consider R/LHC early next week Daily BMP Subjective Date of service: 07/18/19 Principal diagnosis: Acute on chronic systolic HF, CAD, GERD, T2DM, Schizophrenia Interval history: NO events overnight No new complaints Objective Vital Signs Temp Pulse Pulse Pulse Resp Resp Resp 07/18/19 09:51 07/18/19 09:30 86 16 07/18/19 08:25 98.1 F 82 18 07/18/19 05:43 07/18/19 03:55 97.5 F L 83 16 07/17/19 23:28 98.1 F 87 16 07/17/19 21:31 87 07/17/19 20:29 07/17/19 20:00 86 20 07/17/19 19:33 98.0 F 87 20 07/17/19 16:49 98.1 F 18 07/17/19 15:40 96 H 86 18 20 07/17/19 12:10 98.0 F 119 H 18 BP Pulse Ox 07/18/19 09:51 99 07/18/19 09:30 07/18/19 08:25 98/72 97 07/18/19 05:43 97/68 07/18/19 03:55 86/65 100 07/17/19 23:28 87/58 100 07/17/19 21:31 95/63 07/17/19 20:29 100 07/17/19 20:00 07/17/19 19:33 95/63 100 07/17/19 16:49 88/56 07/17/19 15:40 07/17/19 12:10 82/58 86 - Physical Examination Narrative exam: General appearance: no acute distress HEENT: Normocephalic Neck: Carotids 2+ Cardiac: S1 and S2 heard no murmur noted Lungs: normal breath sounds Abd: soft Neuro: Grossly Intact Extremities: 2 + edema noted General: No Apparent Distress HEENT: Positive: PERRL Neck: Positive: trachea midline, JVD/HJR Neuro: Positive: Grossly Intact Abdomen: Positive: Soft Extremities: Present: +2 Edema
[2019-07-18] MEDS: PEPCID PO SCH ×2 (12:01→22:00)
[2019-07-18] MEDS: NEURONTIN PO SCH ×3 (12:01→22:00)
[2019-07-18] MEDS: COREG PO SCH ×2 (12:01→21:42)
[2019-07-18] MEDS: HALFPRIN EC PO SCH (12:01)
[2019-07-18] MEDS: ALDACTONE PO SCH (12:23)
[2019-07-18] MEDS: HALDOL PO SCH ×2 (12:24→21:43)
[2019-07-18] MEDS: ZESTRIL PO SCH (12:27)
[2019-07-18] MEDS: ZAROXOLYN PO SCH (12:27)
[2019-07-18] MEDS: SODIUM CHLORIDE FLUSH SYRINGE 10 ML IV SCH ×2 (12:30→21:45)
[2019-07-18] MEDS: DESYREL PO SCH (21:43)
[2019-07-18] MEDS: LOVENOX SUB-Q SCH (22:00)
[2019-07-19] MEDS: LASIX IV SCH (05:48)
[2019-07-19 07:25] LABS: INR 1.17 (0.87-1.13)
[2019-07-19 07:26] LABS: BUN/Creatinine Ratio 26; Blood Urea Nitrogen 23 mg/dL (9-20); Calcium 8.8 mg/dL (8.4-10.2); Hemolysis Index 16
[2019-07-19] MEDS: PROVENTIL IH SCH ×2 (07:54→14:04)
[2019-07-19] MEDS: HumaLOG SUB-Q SCH ×2 (08:08→12:47)
[2019-07-19] MEDS: MILRINONE-D5W 20 MG/100 ML 20 MG/100 ML BAG IV SCH (08:14)
[2019-07-19] MEDS: ALDACTONE PO SCH (10:21)
[2019-07-19] MEDS: NEURONTIN PO SCH (10:21)
[2019-07-19] MEDS: ZAROXOLYN PO SCH (10:21)
[2019-07-19] MEDS: HALDOL PO SCH (10:21)
[2019-07-19] MEDS: HALFPRIN EC PO SCH (10:21)
[2019-07-19] MEDS: PEPCID PO SCH (10:21)
[2019-07-19] MEDS: COREG PO SCH (10:22)
[2019-07-19] MEDS: ZESTRIL PO SCH (10:24)
[2019-07-19] MEDS: SODIUM CHLORIDE FLUSH SYRINGE 10 ML IV SCH (10:25)
[2019-07-19 10:28] VITALS: BP 115/87
--- NOTE | 2019-07-19 11:56 | Progress Note ---
Assessment and Plan Acute CHF exacerbation echocardiogram shows severe, 4 chamber dilated cardiomyopathy, left ventricular systolic ejection fraction 10-15%. Dilated cardiomyopathy, uncertain duration lifevest placed Diabetes NSVT, paroxysmal Noncompliant Recommendations: Advised sodium/fluid restriction. Continue medical management for systolic heart failure as tolerated. Patient insists he is going home today. We will change IV lasix to oral form at 60mg daily in addition to zaroxolyn 5mg daily. Ok for discharge cardiac dave. Patient will follow up at [facility] on at 330p. Subjective Date of service: 07/19/19 Principal diagnosis: Acute on chronic systolic HF, CAD, GERD, T2DM, Schizophrenia Interval history: Edema is slowly improving. Patient reports he is feeling better. Patient insists he is going home today. Objective Vital Signs Temp Pulse Pulse Pulse Resp Resp BP 07/19/19 11:13 88 16 07/19/19 10:25 97.7 F 88 18 115/87 07/19/19 10:24 85 115/87 07/19/19 10:22 101 H 115/87 07/19/19 10:21 89 115/87 07/19/19 08:08 91 H 103/73 07/19/19 07:54 07/19/19 04:25 97.9 F 72 18 07/19/19 00:03 98.1 F 83 19 93/58 07/18/19 22:00 18 07/18/19 21:42 85 111/76 07/18/19 20:11 90 20 07/18/19 20:10 07/18/19 19:28 98.6 F 85 18 111/76 07/18/19 13:30 88 16 07/18/19 11:59 97.8 F 94 H 18 111/74 BP Pulse Ox 07/19/19 11:13 95 07/19/19 10:25 100 07/19/19 10:24 07/19/19 10:22 07/19/19 10:21 07/19/19 08:08 98 07/19/19 07:54 94 07/19/19 04:25 110/60 94 07/19/19 00:03 97 07/18/19 22:00 07/18/19 21:42 07/18/19 20:11 07/18/19 20:10 99 07/18/19 19:28 100 07/18/19 13:30 07/18/19 11:59 99 - Physical Examination General: No Apparent Distress HEENT: Positive: PERRL Neck: Positive: trachea midline Cardiac: Positive: Reg Rate and Rhythm Lungs: Positive: Decreased Breath Sounds Neuro: Positive: Grossly Intact Abdomen: Positive: Soft Extremities: Present: +2 Edema - Labs and Meds Coagulation 07/19/19 Range/Units 06:42 PT 14.6 (12.2-14.9) Sec. INR 1.17 H (0.87-1.13) Comprehensive Metabolic Panel 07/19/19 Range/Units 06:53 Sodium 137 (137-145) mmol/L Potassium 4.8 (3.6-5.0) mmol/L Chloride 95.5 L (98-107) mmol/L Carbon Dioxide 28 (22-30) mmol/L BUN 23 H (9-20) mg/dL Creatinine 0.9 (0.8-1.5) mg/dL Glucose 257 H (75-100) mg/dL Calcium 8.8 (8.4-10.2) mg/dL
--- NOTE | 2019-07-19 13:25 | Discharge Summary ---
Providers - Providers Date of Admission: 07/12/19 17:53 Date of discharge: 07/19/19 Attending physician: OLIVERIO PENDLTEON 07/12/19 17:53 Consult to Physician [CONS] Routine Comment: Consulting Provider: SHAHNAZ HE Physician Instructions: Reason For Exam: chf Primary care physician: CHILD SUPPORT AGENT Hospitalization Condition: Fair Disposition: DC-01 TO HOME OR SELFCARE Core Measure Documentation - Palliative Care Palliative Care/ Comfort Measures: Not Applicable - Core Measures Any of the following diagnoses?: heart failure - Heart Failure Discharge Requirements BREE/ARB for LVSD if EF <40%: Yes Beta luis fernando at discharge: Yes Exam - Constitutional Vitals: Temp Pulse Resp BP Pulse Ox 97.7 F 88 16 115/87 95 07/19/19 10:25 07/19/19 11:13 07/19/19 11:13 07/19/19 10:25 07/19/19 11:13 Plan Diet: low fat, low cholesterol, low salt Plan of Treatment: 1.Follow up with PCP in 1 week. [facility] 3.Keep life vest on 4.No strenous activity Follow up with: PRIMARY CARE, [Primary Care Provider] - 3-5 Days Prescriptions: Spironolactone [Aldactone] 25 mg PO QDAY #30 tablet Aspirin EC [Halfprin EC] 81 mg PO QDAY #30 tablet Famotidine [Pepcid] 20 mg PO BID #60 tablet metOLazone [Zaroxolyn] 5 mg PO QDAY #30 tablet Lisinopril [Zestril TAB] 2.5 mg PO QDAY #30 tablet
[2019-07-20] MEDS ORDERED: ZAROXOLYN PO SCH (10:00)
[2019-07-20] MEDS ORDERED: LASIX PO SCH (10:00)
== END 2019-07-19 14:55 | disposition left against medical advice (07) | DRG 292 ==
LOC: ED 12:49 → 4A 17:53
PROVIDERS: ADMIT Internal Medicine; ATTEND Internal Medicine
DX: I11.0 Hypertensive heart disease with heart failure (principal); E44.1 Mild protein-calorie malnutrition; Z68.1 Body mass index [BMI] 19.9 or less, adult; I47.2 Ventricular tachycardia; I50.23 Acute on chronic systolic (congestive) heart failure; I42.0 Dilated cardiomyopathy; K21.9 Gastro-esophageal reflux disease without esophagitis; M19.90 Unspecified osteoarthritis, unspecified site; I25.10 Atherosclerotic heart disease of native coronary artery without angina pectoris; F20.9 Schizophrenia, unspecified; J44.9 Chronic obstructive pulmonary disease, unspecified; G89.29 Other chronic pain; G47.33 Obstructive sleep apnea (adult) (pediatric); E11.9 Type 2 diabetes mellitus without complications; Z82.49 Family history of ischemic heart disease and other diseases of the circulatory system; Z83.3 Family history of diabetes mellitus; Z79.84 Long term (current) use of oral hypoglycemic drugs; Z79.899 Other long term (current) drug therapy; Z79.51 Long term (current) use of inhaled steroids; Z95.5 Presence of coronary angioplasty implant and graft; Z91.19 Patient's noncompliance with other medical treatment and regimen
CPT/HCPCS: 36415; 71046; 80048; 80053; 80061; 82962; 83036; 83735; 83880; 84439; 84443; 84484; 85025; 85027; 85610; 85730; 93005; 93010; 93306; 93970; 94640; 94760; 96372; 96374; 96375; G0378; A9270-GY; J1650; J1815; J1940; J2260; J7030